=== PATIENT | male | born 1945 | race Caucasian/White ===

== ENCOUNTER → 2024-01-02 08:58 | Outpatient (REF) | payer MEDICARE, OTHER, SELFPAY ==
[2024-01-02 10:53] LABS: PSA, Total - Diagnostic 1.47 ng/ml (0.0-4.0)
== END ==
LOC: REG 08:58
PROVIDERS: ATTENDING PHYSICIAN Radiology Radiation Oncology; FAMILY PHYSICIAN Internal Medicine; REFERRING PHYSICIAN Urology
DX: C61 Malignant neoplasm of prostate (principal)
CPT/HCPCS: 36415; 84153

== ENCOUNTER → 2024-01-25 12:18 | Outpatient (REF) | payer MEDICARE, OTHER, SELFPAY ==
[2024-01-25 14:51] LABS: PSA, Total - Diagnostic 1.43 ng/ml (0.0-4.0)
== END ==
LOC: REG 12:18
PROVIDERS: ATTENDING PHYSICIAN Radiology Radiation Oncology; FAMILY PHYSICIAN Internal Medicine
DX: C61 Malignant neoplasm of prostate (principal)
CPT/HCPCS: 36415; 84153; 84403

== ENCOUNTER 2024-04-20 23:36 | Inpatient (IN) | payer MEDICARE, OTHER, SELFPAY ==
[2024-04-20 18:18] VITALS: BP 163/80
[2024-04-20] MEDS: TYLENOL 1000 MG PO (19:11)
[2024-04-20] MEDS: NSS 1000 IV ×2 (19:20→23:28)
[2024-04-20 19:27] LABS: % Basophils 0.1 % (0-2); % Eosinophils 0.5 % (0-6); % Immature Granulocytes 0.2 % (0-0.5); % Lymphocytes 3.4 % (20.5-51.1); % Neutrophils 83.8 % (42.2-75.2); Absolute Eosinophils 0.1 10^3/uL (0-0.7); Absolute Lymphocytes 0.4 10^3/uL (1.2-3.4); Absolute Monocytes 1.5 10^3/uL (0.1-0.6); Absolute Neutrophils 10.2 10^3/uL (1.4-6.5); Hematocrit 37.4 % (39.0-52.0); Hemoglobin 12.9 g/dL (13.0-18.0); Mean Corp Hgb Conc. 34.5 g/dL (33.0-37.0); Mean Corpuscular Hgb 31.2 pg (27.0-31.0); Mean Corpuscular Volume 90.6 fL (80.0-94.0); Mean Platelet Volume 9.5 fL (7.4-10.4); Nucleated Red Blood Cells % 0 % (-); Platelet Count 253 10^3/uL (130-400); Red Blood Cell Count 4.13 10^6/uL (4.70-6.10); Red Cell Dist. Width 12.5 % (11.5-14.5); White Blood Cell Count 12.2 10^3/uL (4.8-10.8)
[2024-04-20 19:40] LABS: ALT (SGPT) 26 U/L (0-50); AST (SGOT) 24 U/L (17-59); Albumin 3.8 g/dl (3.5-5.0); Alkaline Phosphatase 74 U/L (38-126); Blood Urea Nitrogen 17 mg/dl (9-20); Carbon Dioxide 27 mmol/L (22-30); Chloride 101 mmol/L (98-107); Glucose 110 mg/dl (70-99); Potassium 3.9 mmol/L (3.5-5.1); Sodium 134 mmol/L (135-145); Total Bilirubin 1.1 mg/dl (0.2-1.3); Total Protein 6.4 g/dl (6.3-8.2); eGFR > 60.00
--- NOTE | 2024-04-20 19:55 | ED.GENMED ---
History of Present Illness
General
Chief Complaint: Dehydration Symptoms
Source: patient and spouse
Exam Limitations: none
Time Seen by Provider: 04/20/24 18:29
Nursing documentation reviewed up to this point in time: agreed with
History of Present Illness
History of Present Illness:
79-year-old male status post prostate removal 15 years ago now had recurrence elevated PSAs finished course of radiation at [facility], on his pelvis restarted recently on his ribs for 5 days has had fatigue nausea diarrhea intermittent constipation
trouble urinating febrile here in triage, has been sleeping quite a bit, breathing okay, no recent antibiotic use,
Past History
Past History
ED Past Medical History: Cancer (Prostate cancer,)
ED Past Surgical History: Appendectomy and Urological (Prostatectomy)
Social History
Tobacco: Non-smoker
Alcohol: None
Drug: None
Personal:
Living: with family
Employment: Employed
Family History
Family History: Other (Noncontributory)
Review of Systems
Review of Systems
All Other Systems: Not applicable
Constitutional: Reports fatigue
EENT: Reports no symptoms
Respiratory: Reports no symptoms
Cardiac: Reports no symptoms
ABD/GI: Reports abdominal pain, nausea, diarrhea and constipated
: Reports dysuria, frequency, difficulty voiding and urgency
Musculoskeletal: Reports no symptoms
Neurological: Reports weakness
Endocrine: Reports no symptoms
Hematologic/Lymphatic: Reports no symptoms
Phy Exam
Physical Exam
Physical Exam:
Physical Exam
General: 70s male febrile normal mental status
Neck: Dry
Heart: Tachycardic
Lungs: no acute respiratory distress. clear bilaterally
Abdomen: Mild suprapubic tenderness
Neuro: alert and oriented. no focal neurological deficits
Skin: no rash
Psychiatric: well kept. interactive and cooperative
Extremities: no edema.
Course
Orders/Labs/Results
Orders:
Orders
04/20/24 18:32
STOOL [C difficile Antigen & Toxins] Urgent
BRIDGET Source: Feces/Stool
Specimen Description:
Date Specimen was Collected: 04/20/24
Time Specimen was Collected: 20:32
Stool Culture Urgent
BRIDGET Source: Feces/Stool
Specimen Description:
Date Specimen was Collected: 04/20/24
Time Specimen was Collected: 20:32
04/20/24 18:59
0.9% Sodium Chloride 1000 ml [Nss] 1,000 ml IV BOLUS
Acetaminophen [Tylenol] 1,000 mg PO NOW STA
04/20/24 19:16
CMP [Comprehensive Metabolic Panel] Urgent
Complete Blood Count/With Diff Urgent
04/20/24 19:21
Bladder Scan- Treatment ONCE
04/20/24 19:57
CT Abd/Pel (IV only)-[facility] only Urgent
Comment:
Reason For Exam: Fever diarrhea prostate cancer
04/20/24 21:46
Urinalysis Reflex To Culture Urgent
Date Specimen was Collected: 04/20/24
Time Specimen was Collected: 20:32
Abnormal Lab Results
04/20/24 04/20/24
19:16 21:46
WBC 12.2 H 10^3/uL
(4.8-10.8)
RBC 4.13 L 10^6/uL
(4.70-6.10)
Hgb 12.9 L g/dL
(13.0-18.0)
Hct 37.4 L %
(39.0-52.0)
MCH 31.2 H pg
(27.0-31.0)
Absolute Neuts (auto) 10.2 H 10^3/uL
(1.4-6.5)
Absolute Lymphs (auto) 0.4 L 10^3/uL
(1.2-3.4)
Absolute Monos (auto) 1.5 H 10^3/uL
(0.1-0.6)
Neutrophils % 83.8 H %
(42.2-75.2)
Lymphocytes % 3.4 L %
(20.5-51.1)
Monocytes % 12.0 H %
(1.7-9.3)
Sodium 134 L mmol/L
(135-145)
Glucose 110 H mg/dl
(70-99)
Urine Ketones Trace A
(Negative)
04/20/24 19:16
04/20/24 19:16
Vital Signs
Initial and Last Documented VS:
Initial Vital Signs
Temp Pulse Resp BP Pulse Ox
100.9 F H 94 18 163/80 97
04/20/24 18:18 04/20/24 18:18 04/20/24 18:18 04/20/24 18:18 04/20/24 18:18
Last Documented Vital Signs
Temp Pulse Resp BP Pulse Ox
100.9 F H 94 18 115/64 97
04/20/24 18:18 04/20/24 18:18 04/20/24 18:18 04/20/24 21:40 04/20/24 18:18
*Critical Care Note
Total Time (30-74mins, 75-104mins- exclusive of procedures): Not Applicable
Update Note
Update Note:
Update, labs noted, patient has yet to provide a stool specimen
In light of the patient's relatively severe symptoms and fever and believe it would be prudent to admit him to the hospital unclear what the optimal treatment other than supportive therapy at this time
Message sent to hospitalist, colorectal
ED Attending Note
-
Portions of this chart may have been created with voice recognition software.� Occasional wrong word or��sound alike� substitutions may have occurred due to the inherent limitations of voice recognition software.
Discharge Plan
Departure
Patient Disposition: Admit
Date of Disposition: 04/20/24
Time of Disposition: 22:47
Presentation/result/management discussed w/ accepting MD/DO: Hospitalist
Patient with high blood pressure during this ER visit?: No
Condition: Fair
Discharge Problem:
Proctocolitis
Prescriptions:
No Action
metoprolol succinate [Toprol XL] 50 mg Tablet Extended Release 24 Hr
50 mg PO DAILY
brinzolamide 1 % Drops,Suspension
1 drp BOTH EYES TID
aspirin 81 mg Tablet,Delayed Release (Dr/Ec)
81 mg PO DAILY
timolol maleate 0.5 % Drops
1 drp BOTH EYES BID
omeprazole 20 mg Tablet,Delayed Release (Dr/Ec)
20 mg PO DAILY
PreserVision AREDS 2,148 mcg-113 mg-45 mg-17.4mg Tablet
1 tab PO DAILY
Lumigan 0.01 % Drops
1 drp BOTH EYES HS
Referrals:
Jaycee Middleton MD [Family Provider] -
Interventions
Interventions:
ED- Cardiac Assessment Last Done: 04/20/24 21:41
ED- Neurological Assessment Last Done: 04/20/24 21:41
ED- Pulmonary Assessment Last Done: 04/20/24 21:41
Discharge Date and Time
Print Language: VIETNAMESE
[2024-04-20 21:40] VITALS: BP 115/64
[2024-04-20 21:53] LABS: Urine Albumin Negative (Neg - Trace); Urine Bilirubin Negative (Negative); Urine Character Clear (Clear); Urine Color Yellow; Urine Glucose Negative (Negative); Urine Ketone Trace (Negative); Urine Leukocyte Negative (Negative); Urine Nitrite Negative (Negative); Urine Occult Blood Negative (Negative); Urine Specific Gravity 1.015 (<1.030); Urine Urobilinogen Negative (Neg - 1+)
--- NOTE | 2024-04-20 22:51 | ED.GENMED ---
History of Present Illness
General
Chief Complaint: Dehydration Symptoms
Time Seen by Provider: 04/20/24 18:29
Past History
Past History
ED Past Medical History: Cancer (Prostate cancer,)
ED Past Surgical History: Appendectomy and Urological (Prostatectomy)
Social History
Tobacco: Non-smoker
Alcohol: None
Drug: None
Personal:
Living: with family
Employment: Employed
Family History
Family History: Other (Noncontributory)
Course
Orders/Labs/Results
Orders:
Orders
04/20/24 18:32
STOOL [C difficile Antigen & Toxins] Urgent
BRIDGET Source: Feces/Stool
Specimen Description:
Date Specimen was Collected: 04/20/24
Time Specimen was Collected: 20:32
Stool Culture Urgent
BRIDGET Source: Feces/Stool
Specimen Description:
Date Specimen was Collected: 04/20/24
Time Specimen was Collected: 20:32
04/20/24 18:59
0.9% Sodium Chloride 1000 ml [Nss] 1,000 ml IV BOLUS
Acetaminophen [Tylenol] 1,000 mg PO NOW STA
04/20/24 19:16
CMP [Comprehensive Metabolic Panel] Urgent
Complete Blood Count/With Diff Urgent
04/20/24 19:21
Bladder Scan- Treatment ONCE
04/20/24 19:57
CT Abd/Pel (IV only)-[facility] only Urgent
Comment:
Reason For Exam: Fever diarrhea prostate cancer
04/20/24 21:46
Urinalysis Reflex To Culture Urgent
Date Specimen was Collected: 04/20/24
Time Specimen was Collected: 20:32
Abnormal Lab Results
04/20/24 04/20/24
19:16 21:46
WBC 12.2 H 10^3/uL
(4.8-10.8)
RBC 4.13 L 10^6/uL
(4.70-6.10)
Hgb 12.9 L g/dL
(13.0-18.0)
Hct 37.4 L %
(39.0-52.0)
MCH 31.2 H pg
(27.0-31.0)
Absolute Neuts (auto) 10.2 H 10^3/uL
(1.4-6.5)
Absolute Lymphs (auto) 0.4 L 10^3/uL
(1.2-3.4)
Absolute Monos (auto) 1.5 H 10^3/uL
(0.1-0.6)
Neutrophils % 83.8 H %
(42.2-75.2)
Lymphocytes % 3.4 L %
(20.5-51.1)
Monocytes % 12.0 H %
(1.7-9.3)
Sodium 134 L mmol/L
(135-145)
Glucose 110 H mg/dl
(70-99)
Urine Ketones Trace A
(Negative)
04/20/24 19:16
04/20/24 19:16
Vital Signs
Initial and Last Documented VS:
Initial Vital Signs
Temp Pulse Resp BP Pulse Ox
100.9 F H 94 18 163/80 97
04/20/24 18:18 04/20/24 18:18 04/20/24 18:18 04/20/24 18:18 04/20/24 18:18
Last Documented Vital Signs
Temp Pulse Resp BP Pulse Ox
100.9 F H 94 18 115/64 97
04/20/24 18:18 04/20/24 18:18 04/20/24 18:18 04/20/24 21:40 04/20/24 18:18
ED Attending Note
-
Portions of this chart may have been created with voice recognition software.� Occasional wrong word or��sound alike� substitutions may have occurred due to the inherent limitations of voice recognition software.
Discharge Plan
Departure
Patient Disposition: Admit
Date of Disposition: 04/20/24
Time of Disposition: 22:47
Presentation/result/management discussed w/ accepting MD/DO: Hospitalist
Patient with high blood pressure during this ER visit?: No
Condition: Fair
Discharge Problem:
Proctocolitis
Prescriptions:
No Action
metoprolol succinate [Toprol XL] 50 mg Tablet Extended Release 24 Hr
50 mg PO DAILY
brinzolamide 1 % Drops,Suspension
1 drp BOTH EYES TID
aspirin 81 mg Tablet,Delayed Release (Dr/Ec)
81 mg PO DAILY
timolol maleate 0.5 % Drops
1 drp BOTH EYES BID
omeprazole 20 mg Tablet,Delayed Release (Dr/Ec)
20 mg PO DAILY
PreserVision AREDS 2,148 mcg-113 mg-45 mg-17.4mg Tablet
1 tab PO DAILY
Lumigan 0.01 % Drops
1 drp BOTH EYES HS
Referrals:
Jaycee Middleton MD [Family Provider] -
Interventions
Interventions:
ED- Cardiac Assessment Last Done: 04/20/24 21:41
ED- Neurological Assessment Last Done: 04/20/24 21:41
ED- Pulmonary Assessment Last Done: 04/20/24 21:41
Discharge Date and Time
Print Language: FRENCH
[2024-04-20] MEDS: ZOSYN 50 IV (23:28)
--- NOTE | 2024-04-20 23:49 | HPS.HSE ---
Addendum entered and electronically signed by Efrain Whittington DO 04/21/24 00:08:
Patient seen and examined independently. Agree with findings and plan as set forth by Michelle Miller PA-C.
Patient is a 79y M with PMH significant for prostate cancer on XRT who presents to ED complaining of pelvic discomfort and straining to move his bowels. Patient notes that he completed a course of pelvic XRT for recurrent prostate cancer last
(34 treatments total). Patient states that he has been having alternating diarrhea and constipation since beginning radiation. Patient denies fevers, chills, N/V, etc.
Ass:
Acute Radiation Proctocolitis
Recurrent Prostate Cancer
Benign Hypertension
GERD
Plan:
Admit for further evaluation and treatment.
CT shows evidence of proctocolitis - likely secondary to radiation.
Supportive treatment including IVFs, pain control, etc.
Will observe off of further antibiotics.
Bowel regimen to alleviate constipation / straining.
Oncology evaluation for additional recommendations.
Continue usual home medications.
Original Note:
Family Physician
-
Family Physician: Jaycee Middleton
Chief Complaint
-
Constipation and Pelvic Pain
History of Present Illness
Patient is a 79 y/o male past medical history of hypertension and prostate cancer who presents with pelvic discomfort associated with difficulty moving his bowel. Patient reports he finished up a coarse of radiation on April 14 for recurrence of
his prostate cancer. Patient notes during the radiation he was always having trouble with his bowels alternating between constipation and diarrhea. He notes last BM was earlier today and described as 'mashed potato consistency'. He notes over the
past few days he has also been having difficulty urinating. He reports feeling very fatigued with not much appetite. He denies fevers, sweats or chills. He denies recent travel, antibiotics or unusual food intake.
Medical History
Past Medical History
Past Medical History: Reports Other
Additional Past Medical History:
Prostate Cancer s/p Prostatectomy and Radiation
Essential Hypertension
GERD
Past Surgical History: Reports Other
Additional Past Surgical History:
Prostatectomy
Appendectomy
Right Total Replacement
Social History
Tobacco: Non-smoker
Alcohol: None
Family History
Family History: Not pertinent
Allergies / Home Medications
Allergies reflects when Allergies were last updated in [employer].
Home Medications with original date entered in [employer]
Allergy/Medication List:
Allergies
Allergy/AdvReac Type Severity Reaction Status Date / Time
No Known Allergies Allergy Verified 04/20/24 18:23
Home Medications
aspirin 81 mg tablet,delayed release 81 mg PO DAILY 04/20/24
bimatoprost 0.01 % eye drops (Lumigan) 1 drp BOTH EYES HS 04/20/24
brinzolamide 1 % eye drops,suspension 1 drp BOTH EYES TID 04/20/24
metoprolol succinate 50 mg tablet,extended release 24 hr (Toprol XL) 50 mg PO DAILY 04/20/24
omeprazole 20 mg tablet,delayed release 20 mg PO DAILY 04/20/24
timolol maleate 0.5 % eye drops 1 drp BOTH EYES BID 04/20/24
vitamins A,C,T-tbdx-tbjahe 2,148 mcg-113 mg-45 mg-17.4 mg tablet (PreserVision AREDS) 1 tab PO DAILY 04/20/24
Review of Systems
-
A 12 point ROS was completed and negative except as noted: Yes
Constitutional: Denies Fever or Chills
Respiratory: Denies Cough or Trouble Breathing
Cardiac: Denies Chest Pain or Palpitations
Physical Exam
Vital Signs
Vital Signs
Temp Pulse Resp BP Pulse Ox
100.9 F H 94 18 115/64 97
04/20/24 18:18 04/20/24 18:18 04/20/24 18:18 04/20/24 21:40 04/20/24 18:18
Physical Exam
General: Comfortable and Conversant
HEENT: Anicteric and Moist mucous membranes
Respiratory: Clear and Non Labored Respirations
Cardiac: S1/S2 and Regular Rhythm
GI: Soft and Non Tender (Mild discomfort in suprapubic region)
Rectal: Deferred by Provider
Musculoskeletal: No Clubbing, No Cyanosis and No Edema
Skin: Warm and Dry
Neuro: Awake, Alert, Oriented and Nonfocal/grossly intact
Laboratory Results
-
04/20/24 19:16
04/20/24 19:16
Laboratory Results
Total Bilirubin 1.1 mg/dl (0.2-1.3) 04/20/24 19:16
AST 24 U/L (17-59) 04/20/24 19:16
ALT 26 U/L (0-50) 04/20/24 19:16
Alkaline Phosphatase 74 U/L (38-126) 04/20/24 19:16
Data Reviewed
-
CT Scan: Report Reviewed by me
Lab Data: Labs Reviewed by me
Impression/Plan
-
Acute Proctocolitis, likely secondary to radiation
-Consult Oncology
-Continue IVFs - Allow clear liquids
-Start Miralax Daily
-Avoid narcotics as this will make constipation worse
-Monitor bladder scans
-Hold on further antibiotics
Essential Hypertension
-Continue metoprolol with hold parameters
GERD
-Continue Protonix
Prostate Cancer s/p Prostatectomy 15 years ago and Radiation (Completed Pelvic Radiation on April 14 and Started Right Rib Radiation on April 20)
DVT proph: SCDs
Code Status: Full Code
[2024-04-21 01:47] VITALS: BMI 22.9
[2024-04-21 01:48] VITALS: BP 164/86
[2024-04-21] MEDS: NSS 1000 IV ×2 (04:13→16:15)
[2024-04-21 06:28] LABS: Hematocrit 32.2 % (39.0-52.0); Hemoglobin 11.5 g/dL (13.0-18.0); Mean Corp Hgb Conc. 35.7 g/dL (33.0-37.0); Mean Corpuscular Hgb 31.3 pg (27.0-31.0); Mean Corpuscular Volume 87.5 fL (80.0-94.0); Mean Platelet Volume 9.7 fL (7.4-10.4); Platelet Count 209 10^3/uL (130-400); Red Blood Cell Count 3.68 10^6/uL (4.70-6.10); Red Cell Dist. Width 12.4 % (11.5-14.5); White Blood Cell Count 9.8 10^3/uL (4.8-10.8)
[2024-04-21 06:52] LABS: Blood Urea Nitrogen 14 mg/dl (9-20); Calcium 8.7 mg/dl (8.4-10.2); Carbon Dioxide 25 mmol/L (22-30); Chloride 104 mmol/L (98-107); Estimated Creatinine Clearance 93 ml/min; Glucose 111 mg/dl (70-99); Potassium 3.7 mmol/L (3.5-5.1); Sodium 135 mmol/L (135-145); eGFR > 60.00
[2024-04-21 07:00] VITALS: BP 137/81
[2024-04-21] MEDS: MIRALAX 17 GRAMS PO (08:11)
[2024-04-21] MEDS: AZOPT 1% OPHTHALMIC SUSPENSION 1 DROP BOTH EYES ×3 (08:11→21:11)
[2024-04-21] MEDS: PROTONIX 40 MG PO (08:11)
[2024-04-21] MEDS: TOPROL XL 50 MG PO (08:11)
[2024-04-21] MEDS: TIMOPTIC 0.5% OPHTHALMIC SOLUTION 1 DROP BOTH EYES ×2 (08:12→21:11)
--- NOTE | 2024-04-21 08:38 | W.PN.HOSP.TC ---
Today's Communication/Plan
-
see bold
Assessment / Plan
Assessment / Plan
HPI: 9y M with PMH significant for prostate cancer on XRT who presents to ED complaining of pelvic discomfort and straining to move his bowels. Patient notes that he completed a course of pelvic XRT for recurrent prostate cancer last
(34 treatments total). Patient states that he has been having alternating diarrhea and constipation since beginning radiation. Patient denies fevers, chills, N/V, etc.
Acute Proctocolitis, likely secondary to radiation
-CT of the abdomen and pelvis shows acute proctocolitis of the rectum and sigmoid colon, moderate fecal material in the proximal colon
-Oncology consulted
-Treatment for acute proctocolitis is supportive care, continue IV fluids, pain meds, MiraLAX
-Avoid narcotics as this will make constipation worse
-Monitor bladder scans
-Hold on further antibiotics
Recurrent Prostate Cancer s/p Prostatectomy 15 years ago and Radiation (Completed Pelvic Radiation on April 14 and Started Right Rib Radiation on April 20)
-Follow-up with oncology outpatient
Leukocytosis
� Reactive, resolved
Essential Hypertension
-Continue metoprolol with hold parameters
GERD
-Continue Protonix
DVT proph: SQ lovenox
Code Status: Full Code
Total time spent to see the patient on the floor, examine the patient, review data and lab results, discuss treatment plan with patient, nursing staff around 50 minutes.
Physical Exam
General: Appears to not feel well, no acute distress
HEENT: Normocephalic, Atraumatic, EOMI, MMM
Respiratory: Clear to Auscultation bilaterally
Cardiac: Normal S1/S2, Regular Rate and Rhythm
GI: Soft, Nontender, Nondistended, Normal Bowel Sounds
Extremities: No Clubbing, Cyanosis, or Edema
Neuro: Nonfocal/Grossly Intact
Psych: Calm, Cooperative
Derm: No Visible lesions
Anticipated Discharge: 24 - 48 hours
Subjective/Interval History
-
Date of Service: April 21, 2024
Patient continues to have intermittent abdominal cramping causing him to go to the bathroom. His cramping resolves after a bowel movement. No fever, no vomiting.
Objective Data
-
Labs:
Laboratory Results
04/21/24
05:59
WBC 9.8
Hgb 11.5 L
Hct 32.2 L
Plt Count 209
Sodium 135
Potassium 3.7
Chloride 104
Carbon Dioxide 25
BUN 14
Creatinine 0.7
Glucose 111 H
Calcium 8.7
Vital Signs:
Vital Signs
Temp Pulse Resp BP Pulse Ox
98.2 F 83 17 137/81 98
04/21/24 07:00 04/21/24 07:00 04/21/24 07:00 04/21/24 07:00 04/21/24 07:00
--- NOTE | 2024-04-21 14:46 | CON.ONC ---
Impression
Impression
prostate cancer
proctocolitis - potentially radiation induced
diarrhea/ constipation
Plan
Plan
1. Prostate cancer
-s/p prostatectomy - 15 years ago - now w/ biochemical recurrence s/p XRT to prostate bed at [facility]
-would recommend consultation w/ radiation oncology regarding management of potential post radiation complications
-consider GI consultation assist w/ management of proctocolitis
Patient History
History of Present Illness
79y/o male seen in consultation today regarding prostate cancer.
The patient has a h/o prostate cancer, s/p prostatectomy at [facility] approximately 15 years ago. More recently due to rise in PSA, he underwent XRT to the prostate bed w/ Dr. Briceño at [facility], finishing last week.
He presented to the [facility] ER yesterday w/pelvic discomfort and difficulty moving his bowels. He has been having alternating diarrhea and constipation since beginning radiation.
CT imaging in the ER revealed severe acute proctocolitis of the rectum and sigmoid colon. Moderate diffuse urinary bladder wall thickening suggesting cystitis.
Clinically, he feels slightly better this afternoon. He continues to have loose stools w/ some abdominal pain. No fevers or chills.
Past-Medical/Surgical History
PMH:
prostate cancer - s/p prostatectomy approximately 15 years ago at [facility] - now w/ biochemical recurrence - s/p XRT at [facility] - Dr. Briceño
Essential Hypertension
GERD
PSH:
Prostatectomy
Appendectomy
Right Total Replacement
Social History
Tobacco: Non-smoker
Alcohol: None
Family History
Family History: Not pertinent
Allergies:
NKDA
Patient Medication
�Medication �Instructions �Recorded �Confirmed �Last Taken �Type
aspirin 81 mg tablet,delayed 81 mg PO DAILY Blood Clot 04/20/24 04/20/24 04/20/24 History
release Prevention/Tx
bimatoprost 0.01 % eye drops 1 drp BOTH EYES HS Eye Condition 04/20/24 04/20/24 04/19/24 History
(Lumigan)
brinzolamide 1 % eye 1 drp BOTH EYES TID Eye Condition 04/20/24 04/20/24 04/20/24 History
drops,suspension
metoprolol succinate 50 mg 50 mg PO DAILY Blood Pressure 04/20/24 04/20/24 04/20/24 History
tablet,extended release 24 hr
(Toprol XL)
omeprazole 20 mg tablet,delayed 20 mg PO DAILY Gastrointestinal 04/20/24 04/20/24 04/20/24 History
release Issue
timolol maleate 0.5 % eye drops 1 drp BOTH EYES BID Eye Condition 04/20/24 04/20/24 04/20/24 History
vitamins A,C,U-itnl-syjqfn 2,148 1 tab PO DAILY Supplement 04/20/24 04/20/24 04/20/24 History
mcg-113 mg-45 mg-17.4 mg tablet
(PreserVision AREDS)
Active Medications
Generic Name Dose Route Start Last Admin
Trade Name Freq PRN Reason Stop Dose Admin
Acetaminophen 650 mg 04/21/24 01:52
Acetaminophen 325 Mg Tablet PO 05/19/24 01:51
Q4HPRN PRN
mild pain/ fever>100.5F
Brinzolamide 1 drop 04/21/24 08:00 04/21/24 08:11
Brinzolamide 1% (Ophthalmic Suspension) 15 Ml Bottle BOTH EYES 05/19/24 07:59 1 drop
TID BRITNEY Administration
Enoxaparin Sodium 40 mg 04/21/24 18:00
Enoxaparin Sodium 40 Mg/0.4 Ml Syringe SC 05/19/24 17:59
QPM BRITNEY
Sodium Chloride 1,000 mls @ 80 mls/hr 04/21/24 01:52 04/21/24 04:13
Nss IV 1,000 mls
[id number] BRITNEY Administration
Ketorolac Tromethamine 10 mg 04/21/24 01:52
Ketorolac 15 Mg/Ml Injection IV 04/26/24 01:51
Q6HPRN PRN
moderate/severe pain
Latanoprost 1 drop 04/21/24 22:00
Latanoprost 0.005% (Ophthalmic Solution) 2.5 Ml Bottle BOTH EYES 05/19/24 21:59
HS BRITNEY
Metoprolol Succinate 50 mg 04/21/24 08:00 04/21/24 08:11
Metoprolol 50 Mg Extended Release Tablet PO 05/19/24 07:59 50 mg
DAILY BRITNEY Administration
Pantoprazole Sodium 40 mg 04/21/24 08:00 04/21/24 08:11
Pantoprazole 40 Mg Delayed Release Tablet PO 05/19/24 07:59 40 mg
DAILY BRITNEY Administration
Polyethylene Glycol 17 grams 04/21/24 08:00 04/21/24 08:11
Polyethylene Glycol Powder 17 Grams Packet PO 05/19/24 07:59 17 grams
DAILY BRITNEY Administration
Sodium Chloride 0 flush 04/21/24 03:00
Sodium Chloride 0.9% (Flush) Syringe IV 05/19/24 02:59
PER PROTOCOL BRITNEY
Timolol Maleate 1 drop 04/21/24 08:00 04/21/24 08:12
Timolol 0.5% (Ophthalmic Solution) Bottle BOTH EYES 05/19/24 07:59 1 drop
BID BRITNEY Administration
Review of Systems
-
An ROS was performed w/ pertinent findings as per HPI.
Physical Exam
-
General: Well Developed and No Apparent Distress
Cardiology: Normal Sinus Rhythm
Pulmonary: Clear
GI: Soft and Distended
Extremities: No C/C/E
Neurology: Non Focal
Labs
Lab Results
WBC 9.8 10^3/uL (4.8-10.8) 04/21/24 05:59
RBC 3.68 10^6/uL (4.70-6.10) L 04/21/24 05:59
Hgb 11.5 g/dL (13.0-18.0) L 04/21/24 05:59
Hct 32.2 % (39.0-52.0) L 04/21/24 05:59
MCV 87.5 fL (80.0-94.0) 04/21/24 05:59
MCH 31.3 pg (27.0-31.0) H 04/21/24 05:59
MCHC 35.7 g/dL (33.0-37.0) 04/21/24 05:59
RDW 12.4 % (11.5-14.5) 04/21/24 05:59
Plt Count 209 10^3/uL (130-400) 04/21/24 05:59
MPV 9.7 fL (7.4-10.4) 04/21/24 05:59
Abs Immat Gran (auto) 0.0 10^3/uL (0-0.05) 04/20/24 19:16
Absolute Neuts (auto) 10.2 10^3/uL (1.4-6.5) H 04/20/24 19:16
Absolute Lymphs (auto) 0.4 10^3/uL (1.2-3.4) L 04/20/24 19:16
Absolute Monos (auto) 1.5 10^3/uL (0.1-0.6) H 04/20/24 19:16
Absolute Eos (auto) 0.1 10^3/uL (0-0.7) 04/20/24 19:16
Absolute Basos (auto) 0.0 10^3/uL (0-0.2) 04/20/24 19:16
Immature Gran % 0.2 % (0-0.5) 04/20/24 19:16
Neutrophils % 83.8 % (42.2-75.2) H 04/20/24 19:16
Lymphocytes % 3.4 % (20.5-51.1) L 04/20/24 19:16
Monocytes % 12.0 % (1.7-9.3) H 04/20/24 19:16
Eosinophils % 0.5 % (0-6) 04/20/24 19:16
Basophils % 0.1 % (0-2) 04/20/24 19:16
Creatinine 0.7 mg/dL (0.7-1.3) 04/21/24 05:59
Vital Signs
Vital Signs
Temp Pulse Resp BP Pulse Ox
98.2 F 83 17 137/81 98
04/21/24 07:00 04/21/24 07:00 04/21/24 07:00 04/21/24 07:00 04/21/24 07:00
[2024-04-21 16:20] VITALS: BP 143/76
[2024-04-21] MEDS: TYLENOL 1000 MG PO (16:27)
[2024-04-21] MEDS: LOVENOX 40 MG SC (16:27)
[2024-04-21 16:49] VITALS: BP 134/77; BP 143/76; PULSE 85; PULSE 92
[2024-04-21] MEDS: XALATAN OPHTHALMIC SOLUTION 1 DROP BOTH EYES (21:11)
[2024-04-21 23:14] VITALS: BP 161/88
[2024-04-22] MEDS: NSS 1000 IV (06:03)
[2024-04-22 06:19] LABS: Hematocrit 29.7 % (39.0-52.0); Hemoglobin 11.2 g/dL (13.0-18.0); Mean Corp Hgb Conc. 37.7 g/dL (33.0-37.0); Mean Corpuscular Hgb 32.1 pg (27.0-31.0); Mean Corpuscular Volume 85.1 fL (80.0-94.0); Mean Platelet Volume 9.5 fL (7.4-10.4); Platelet Count 205 10^3/uL (130-400); Red Blood Cell Count 3.49 10^6/uL (4.70-6.10); Red Cell Dist. Width 12.3 % (11.5-14.5); White Blood Cell Count 9.9 10^3/uL (4.8-10.8)
[2024-04-22 06:49] LABS: Blood Urea Nitrogen 14 mg/dl (9-20); Calcium 8.4 mg/dl (8.4-10.2); Carbon Dioxide 24 mmol/L (22-30); Chloride 104 mmol/L (98-107); Estimated Creatinine Clearance 93 ml/min; Glucose 113 mg/dl (70-99); Magnesium 1.6 mg/dl (1.6-2.3); Phosphorus 2.7 mg/dl (2.5-4.5); Potassium 3.5 mmol/L (3.5-5.1); Sodium 133 mmol/L (135-145); eGFR > 60.00
[2024-04-22 07:53] VITALS: BP 135/82
--- NOTE | 2024-04-22 08:33 | W.PN.HOSP.TC ---
Today's Communication/Plan
-
Discharge tomorrow
Assessment / Plan
Assessment / Plan
HPI: 9y M with PMH significant for prostate cancer on XRT who presents to ED complaining of pelvic discomfort and straining to move his bowels. Patient notes that he completed a course of pelvic XRT for recurrent prostate cancer last
(34 treatments total). Patient states that he has been having alternating diarrhea and constipation since beginning radiation. Patient denies fevers, chills, N/V, etc.
Acute Proctocolitis, likely secondary to radiation
-CT of the abdomen and pelvis shows acute proctocolitis of the rectum and sigmoid colon, moderate fecal material in the proximal colon
-Oncology consulted
-Treatment for acute proctocolitis is supportive care, continue IV fluids, pain meds, MiraLAX
-Avoid narcotics as this will make constipation worse
-Monitor bladder scans
-Hold on further antibiotics. C diff neg, f/u stool cultures
-Hopeful for discharge tomorrow with continued improvement
Recurrent Prostate Cancer s/p Prostatectomy 15 years ago and Radiation (Completed Pelvic Radiation on April 14 and Started Right Rib Radiation on April 20)
-Follow-up with oncology outpatient
Leukocytosis
� Reactive, resolved
Essential Hypertension
-Continue metoprolol with hold parameters
GERD
-Continue Protonix
DVT proph: SQ lovenox
Code Status: Full Code
Total time spent to see the patient on the floor, examine the patient, review data and lab results, discuss treatment plan with patient, nursing staff around 38 minutes.
Physical Exam
General: Appears to not feel well, no acute distress
HEENT: Normocephalic, Atraumatic, EOMI, MMM
Respiratory: Clear to Auscultation bilaterally
Cardiac: Normal S1/S2, Regular Rate and Rhythm
GI: Soft, Nontender, Nondistended, Normal Bowel Sounds
Extremities: No Clubbing, Cyanosis, or Edema
Neuro: Nonfocal/Grossly Intact
Psych: Calm, Cooperative
Derm: No Visible lesions
Anticipated Discharge: Within 24 hours
Subjective/Interval History
-
Date of Service: April 22, 2024
Patient reports less straining with bowel movements. He had 1 loose bowel movement this morning. He is tolerating his low residue diet. No fever, no vomiting.
Objective Data
-
Labs:
Laboratory Results
04/22/24
06:08
WBC 9.9
Hgb 11.2 L
Hct 29.7 L
Plt Count 205
Sodium 133 L
Potassium 3.5
Chloride 104
Carbon Dioxide 24
BUN 14
Creatinine 0.7
Glucose 113 H
Calcium 8.4
Vital Signs:
Vital Signs
Temp Pulse Resp BP Pulse Ox
99.0 F 91 18 135/82 97
04/22/24 07:53 04/22/24 07:53 04/22/24 07:53 04/22/24 07:53 04/22/24 07:53
I&O
04/21/24 04/22/24 04/23/24
06:59 06:59 06:59
Intake Total 1580 / 1580
Output Total 500 / 500
Balance 1080 / 1080
[2024-04-22] MEDS: MIRALAX 17 GRAMS PO (08:46)
[2024-04-22] MEDS: TOPROL XL 50 MG PO (08:46)
[2024-04-22] MEDS: PROTONIX 40 MG PO (08:46)
[2024-04-22] MEDS: TIMOPTIC 0.5% OPHTHALMIC SOLUTION 1 DROP BOTH EYES ×2 (08:51→20:30)
[2024-04-22] MEDS: AZOPT 1% OPHTHALMIC SUSPENSION 1 DROP BOTH EYES ×3 (08:51→21:52)
[2024-04-22] MEDS: KCL 20 MEQ PO (15:50)
[2024-04-22 15:59] VITALS: BP 147/72
[2024-04-22] MEDS: LOVENOX 40 MG SC (16:52)
--- NOTE | 2024-04-22 16:57 | CM ---
Reviewed chart, met with patient to obtain information for assessment. Patient stated that he lives with his in a single home with one step to enter. He is independent with his ADLs, personal care, dressing and bathing. 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 He drives and can transport himself to his appointments and does all of his own shopping.
He has a cane that he does not use but denied any other DME.
He has not had VN services.
He has been to [facility] in the past.
Patient has a prescription plan and uses, [facility] in [place] for all of his medications.
Patient's PCP is, Jaycee Middleton.
Plan: Case management will continue to follow and assist with discharge planning. Patient would like to return home when cleared for discharge.
[2024-04-22] MEDS: XALATAN OPHTHALMIC SOLUTION 1 DROP BOTH EYES (21:53)
[2024-04-22] MEDS: NSS IV (21:59)
[2024-04-22 22:48] VITALS: BP 157/84
[2024-04-23 07:40] VITALS: BP 144/87
--- NOTE | 2024-04-23 08:03 | W.PN.HOSP.TC ---
Today's Communication/Plan
-
Discharge today
Assessment / Plan
Assessment / Plan
HPI: 9y M with PMH significant for prostate cancer on XRT who presents to ED complaining of pelvic discomfort and straining to move his bowels. Patient notes that he completed a course of pelvic XRT for recurrent prostate cancer last
(34 treatments total). Patient states that he has been having alternating diarrhea and constipation since beginning radiation. Patient denies fevers, chills, N/V, etc.
Acute Proctocolitis, likely secondary to radiation
-CT of the abdomen and pelvis shows acute proctocolitis of the rectum and sigmoid colon, moderate fecal material in the proximal colon
-Oncology consulted
-Treatment for acute proctocolitis is supportive care. Pain resolved. Tolerating diet.
-Avoid narcotics as this will make constipation worse
-Monitor bladder scans
-Hold on further antibiotics. C diff neg, f/u stool cultures
-Medically stable for discharge
�Follow-up with his radiation oncologist this week
Recurrent Prostate Cancer s/p Prostatectomy 15 years ago and Radiation (Completed Pelvic Radiation on April 14 and Started Right Rib Radiation on April 20)
-Follow-up with oncology outpatient
Hypokalemia
� Potassium 3.4, replete. Magnesium normal
Leukocytosis
� Reactive, resolved
Essential Hypertension
-Continue metoprolol with hold parameters
GERD
-Continue Protonix
DVT proph: SQ lovenox
Code Status: Full Code
Physical Exam
General: Appears to not feel well, no acute distress
HEENT: Normocephalic, Atraumatic, EOMI, MMM
Respiratory: Clear to Auscultation bilaterally
Cardiac: Normal S1/S2, Regular Rate and Rhythm
GI: Soft, Nontender, Nondistended, Normal Bowel Sounds
Extremities: No Clubbing, Cyanosis, or Edema
Neuro: Nonfocal/Grossly Intact
Psych: Calm, Cooperative
Derm: No Visible lesions
Anticipated Discharge: Today
Subjective/Interval History
-
Date of Service: April 23, 2024
Patient complained of being up all night urinating. No fever, no vomiting. Abdominal cramps resolved. He is tolerating his low residue diet.
Objective Data
-
Labs:
Laboratory Results
04/23/24
06:00
WBC Pending
Hgb Pending
Hct Pending
Plt Count Pending
Sodium Pending
Potassium Pending
Chloride Pending
Carbon Dioxide Pending
BUN Pending
Creatinine Pending
Glucose Pending
Calcium Pending
Vital Signs:
Vital Signs
Temp Pulse Resp BP Pulse Ox
98.7 F 70 16 144/87 99
04/23/24 07:40 04/23/24 07:40 04/23/24 07:40 04/23/24 07:40 04/23/24 07:40
I&O
04/22/24 04/23/24 04/24/24
06:59 06:59 06:59
Intake Total 1580 / 1580
Output Total 500 / 500
Balance 1080 / 1080
[2024-04-23] MEDS: TIMOPTIC 0.5% OPHTHALMIC SOLUTION 1 DROP BOTH EYES (09:17)
[2024-04-23] MEDS: AZOPT 1% OPHTHALMIC SUSPENSION 1 DROP BOTH EYES (09:17)
[2024-04-23] MEDS: PROTONIX 40 MG PO (09:17)
[2024-04-23] MEDS: TOPROL XL 50 MG PO (09:17)
[2024-04-23] MEDS: MIRALAX 17 GRAMS PO (09:17)
[2024-04-23] MEDS: MYLICON 80 MG PO (09:19)
--- NOTE | 2024-04-23 09:43 | W.DCSUMMARY ---
Discharge Summary
Discharge Data
Date of Admission: 04/20/24
Date of Discharge: 04/23/24
-
Pending Results: No
Hospital Course
Discharge diagnosis:
Acute severe radiation-induced proctocolitis
Constipation
Recurrent prostate cancer status post prostatectomy 15 years ago, now treated with radiation
Leukocytosis, likely reactive
Hypokalemia
Benign essential hypertension
Gastroesophageal reflux disease
Consults: Oncology
CT abdomen pelvis:
1. SEVERE ACUTE PROCTOCOLITIS of the rectum and sigmoid colon. Diagnostic possibilities are (1) acute infection, (2) acute exacerbation of ulcerative colitis, or (3) radiation colitis.
2. Moderate diffuse urinary bladder wall thickening suggesting cystitis.
3. 4.8 cm lymphocele or seroma along the left pelvic sidewall.
4. Previous prostatectomy.
5. Mild to moderate diverticulosis in the descending and sigmoid colon.
6. Moderate amount of fecal material throughout the proximal colon.
7. Mild diffuse hepatic steatosis.
8. Small hiatal hernia.
9. 3 mm nonobstructing left intrarenal calculus.
10. 1.6 cm left adrenal adenoma.
11. Grade 1 anterolisthesis of L4 on L5 secondary to severe facet joint arthrosis.
12. 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
Hospital course:
79-year-old male with a past medical history of prostate cancer status post prostatectomy currently on radiation therapy presented with pelvic discomfort, and was found to have severe radiation-induced proctocolitis and constipation.
Patient was seen in conjunction with oncology. He received supportive treatment, with IV fluids, pain medications, and laxatives. After several days, his pelvic cramping resolved. He was able to have bowel movements without straining. He
tolerated a regular diet.
Patient had a leukocytosis, that was likely reactive. His leukocytosis resolved. He was afebrile. Stool studies were negative for C. difficile, stool cultures were also negative.
Patient is medically stable for discharge. He needs to follow-up with his usual radiation oncologist in 2-3 days.
Disposition: Home self-care (declined home VN)
Discharge planning: Required 36 minutes
Discharge Plan
-
Patient Disposition: Home (Routine Discharge)
Discharge Diagnosis/Procedures: Severe acute radiation-induced proctocolitis, constipation, recurrent prostate cancer
Condition: Good
Diet: Low Residue
Activity: As tolerated
Driving Restrictions: As prior to admission
Activity Restrictions/Additional Instructions:
Please follow-up with your radiation oncologist in 2-3 days. Call for an appointment.
Follow-up with your primary care doctor in 1 week. Call for an appointment.
Referrals:
Jaycee Middleton MD [Family Provider] - in one week
Prescriptions:
New
simethicone 80 mg Tablet,Chewable
80 mg PO QIDPRN PRN (Reason: gas) Qty: 30 0RF
acetaminophen [Tylenol Extra Strength] 500 mg Tablet
1,000 mg PO Q6HPRN PRN (Reason: mild pain/ fever>100.5F) Qty: 100 0RF
polyethylene glycol 3350 17 gram/dose powder
17 g PO DAILY Qty: 510 0RF
Continued
metoprolol succinate [Toprol XL] 50 mg Tablet Extended Release 24 Hr
50 mg PO DAILY
brinzolamide 1 % Drops,Suspension
1 drp BOTH EYES TID
aspirin 81 mg Tablet,Delayed Release (Dr/Ec)
81 mg PO DAILY
timolol maleate 0.5 % Drops
1 drp BOTH EYES BID
omeprazole 20 mg Tablet,Delayed Release (Dr/Ec)
20 mg PO DAILY
PreserVision AREDS 2,148 mcg-113 mg-45 mg-17.4mg Tablet
1 tab PO DAILY
Lumigan 0.01 % Drops
1 drp BOTH EYES HS
Discharge Orders:
Discharge Patient (As Directed); Ordered 04/23/24
Ordered By: Joaquin Rojas
Discharge Date and Time
Discharge Date/Time: 04/23/24 14:32
Print Language: LAO
[2024-04-23 11:41] LABS: Hematocrit 34.4 % (39.0-52.0); Hemoglobin 12.1 g/dL (13.0-18.0); Mean Corp Hgb Conc. 35.2 g/dL (33.0-37.0); Mean Corpuscular Hgb 31.1 pg (27.0-31.0); Mean Corpuscular Volume 88.4 fL (80.0-94.0); Platelet Count 256 10^3/uL (130-400); Red Blood Cell Count 3.89 10^6/uL (4.70-6.10); Red Cell Dist. Width 12.5 % (11.5-14.5); White Blood Cell Count 8.7 10^3/uL (4.8-10.8)
--- NOTE | 2024-04-23 11:50 | CM ---
MD entered order for discharge.
Spoke with pt he said he was ready for dc.
Reviewed IMM he agreed with dc.
He said Romana will drive him home.'
Offered VN he declined need,.
PLAN Home no needs
[2024-04-23 12:11] LABS: Blood Urea Nitrogen 13 mg/dl (9-20); Carbon Dioxide 26 mmol/L (22-30); Chloride 101 mmol/L (98-107); Estimated Creatinine Clearance 81 ml/min; Glucose 100 mg/dl (70-99); Magnesium 1.8 mg/dl (1.6-2.3); Potassium 3.4 mmol/L (3.5-5.1); Sodium 137 mmol/L (135-145); eGFR > 60.00
[2024-04-23] MEDS: KCL 40 MEQ PO (13:14)
[2024-04-23 14:06] VITALS: BP 157/81
== END 2024-04-23 14:32 | disposition home or self-care (01) | DRG 395 ==
LOC: 3 WEST ACU 23:36
PROVIDERS: Emergency Medicine; Physician Assistant Medical; ADMITTING PHYSICIAN Hospitalist; ATTENDING PHYSICIAN Family Medicine; EMERGENCY PHYSICIAN Emergency Medicine; FAMILY PHYSICIAN Internal Medicine; OTHER PHYSICIAN Internal Medicine Hematology & Oncology
DX: K62.7 Radiation proctitis (principal); I10 Essential (primary) hypertension; K21.9 Gastro-esophageal reflux disease without esophagitis; K52.9 Noninfective gastroenteritis and colitis, unspecified
CPT/HCPCS: 74177; 80048; 80053; 81003; 83735; 84100; 85025; 85027; 87045; 87046; 87077; 87324; 87427; 87449; 96361; 96365; 99285; Q9967

== ENCOUNTER 2024-05-07 02:13 | Inpatient (IN) | payer MEDICARE, OTHER, SELFPAY ==
[2024-05-06 22:47] VITALS: BMI 21.6
[2024-05-06 22:48] VITALS: BP 138/75
[2024-05-06 23:00] VITALS: BP 139/78
--- NOTE | 2024-05-06 23:14 | ED.GENMED ---
History of Present Illness
<Toro Shahid MD, Resident - Last Filed: 05/07/24 01:32>
General
Chief Complaint: Rectal Bleeding
Time Seen by Provider: 05/06/24 22:56
History of Present Illness
History of Present Illness:
79-year-old male presented to the ED with rectal bleeding. The patient has a history of prostate cancer and was recently seen in on 04/20 for acute proctocolitis, where he was advised to receive supportive care. Following his discharge from the "[facility] on 04/24, he began taking MiraLAX, which led to diarrhea over the next 2 weeks. The rectal bleeding, which began at 4 PM today, is bright red and persistent. He is currently wearing a diaper for the first time due to this bleeding.
Patient reports lower abdominal pain. Patient has undergone total of 34 radiation treatments for his prostate cancer at [place].
Past History
<Toro Shahid MD, Resident - Last Filed: 05/07/24 01:32>
Past History
ED Past Medical History: Cancer (Prostate cancer,)
ED Past Surgical History: Appendectomy and Urological (Prostatectomy)
Social History
Tobacco: Non-smoker
Alcohol: None
Drug: None
Personal:
Living: with family
Employment: Employed
Family History
Family History: Other (Noncontributory)
Review of Systems
<Toro Shahid MD, Resident - Last Filed: 05/07/24 01:32>
Review of Systems
: Reports bleeding (rectal)
Phy Exam
<Toro Shahid MD, Resident - Last Filed: 05/07/24 01:32>
General Physical Exam
General Presentation: well appearing and no apparent distress
Cardiovascular Exam
Cardiovascular Exam: regular rate/rhythm
Pulmonary Exam
Pulmonary Exam: lungs clear
Gastrointestinal Exam
Gastrointestinal Exam: normal bowel sounds and tender
Course
<Toro Shahid MD, Resident - Last Filed: 05/07/24 01:32>
Orders/Labs/Results
Orders:
Orders
05/06/24 23:14
0.9% Sodium Chloride 250 ml [Nss] 250 ml IV BOLUS
05/06/24 23:18
Complete Blood Count/With Diff Urgent
05/06/24 23:23
STOOL [C difficile Antigen & Toxins] Urgent
BRIDGET Source: Feces/Stool
Specimen Description:
Date Specimen was Collected: 05/07/24
Time Specimen was Collected: 01:42
Stool Culture Urgent
BRIDGET Source: Feces/Stool
Specimen Description:
Date Specimen was Collected: 05/07/24
Time Specimen was Collected: 01:43
05/06/24 23:24
Comprehensive Metabolic Panel Urgent
05/06/24 23:50
0.9% Sodium Chloride 1000 ml [Nss] 1,000 ml IV BOLUS
05/07/24 00:15
CT Abd/pelvis W Iv Cont Urgent
Reason For Exam: pain bleeding
05/07/24 01:52
Admit/Transfer Patient As Directed
Co-Sign Provider:
Level of Care: Inpatient admission
Assign to:: Telemetry
Physician / Group: htay
Diagnosis: acute rectal bleed
Reason for Telemetry: Other
Other Reason for Telemetry: acute rectal bleed
Date to Stop Telemetry: 05/09/24
Time to Stop Telemetry: 11:00
Reason for Hospitalization: acute rectal bleed
Expected length of stay greater than two midnights?: Yes
ELOS- Estimated Length of Stay in days: 3
I certify the patient meets the requirements for IP care: Yes
05/07/24 01:53
Code Status As Directed
Resuscitation Status: Full Code
05/09/24 11:00
DC Protocol for Telemetry ONCE
Abnormal Lab Results
05/06/24 05/06/24
23:18 23:24
WBC 11.6 H 10^3/uL
(4.8-10.8)
RBC 4.11 L 10^6/uL
(4.70-6.10)
Hgb 12.8 L g/dL
(13.0-18.0)
Hct 36.5 L %
(39.0-52.0)
MCH 31.1 H pg
(27.0-31.0)
Plt Count 412 H 10^3/uL
(130-400)
Absolute Neuts (auto) 9.3 H 10^3/uL
(1.4-6.5)
Absolute Lymphs (auto) 0.5 L 10^3/uL
(1.2-3.4)
Absolute Monos (auto) 1.6 H 10^3/uL
(0.1-0.6)
Neutrophils % 80.0 H %
(42.2-75.2)
Lymphocytes % 4.6 L %
(20.5-51.1)
Monocytes % 13.8 H %
(1.7-9.3)
BUN 32 H mg/dl
(9-20)
Glucose 117 H mg/dl
(70-99)
Total Protein 6.1 L g/dl
(6.3-8.2)
Albumin 3.4 L g/dl
(3.5-5.0)
05/06/24 23:18
05/06/24 23:24
Vital Signs
Initial and Last Documented VS:
Initial Vital Signs
Temp Pulse BP Pulse Ox
99.2 F 96 138/75 99
05/06/24 22:48 05/06/24 22:48 05/06/24 22:48 05/06/24 22:48
Last Documented Vital Signs
Temp Pulse Resp BP Pulse Ox
99.2 F 70 16 132/83 99
05/06/24 22:48 05/07/24 01:00 05/07/24 01:00 05/07/24 01:00 05/07/24 01:30
<Ray Desai, DO - Last Filed: 05/07/24 02:52>
Orders/Labs/Results
Orders:
Orders
05/06/24 23:14
0.9% Sodium Chloride 250 ml [Nss] 250 ml IV BOLUS
05/06/24 23:18
Complete Blood Count/With Diff Urgent
05/06/24 23:23
STOOL [C difficile Antigen & Toxins] Urgent
BRIDGET Source: Feces/Stool
Specimen Description:
Date Specimen was Collected: 05/07/24
Time Specimen was Collected: 01:42
Stool Culture Urgent
BRIDGET Source: Feces/Stool
Specimen Description:
Date Specimen was Collected: 05/07/24
Time Specimen was Collected: 01:43
05/06/24 23:24
Comprehensive Metabolic Panel Urgent
05/06/24 23:50
0.9% Sodium Chloride 1000 ml [Nss] 1,000 ml IV BOLUS
05/07/24 00:15
CT Abd/pelvis W Iv Cont Urgent
Reason For Exam: pain bleeding
05/07/24 01:52
Admit/Transfer Patient As Directed
Co-Sign Provider:
Level of Care: Inpatient admission
Assign to:: Telemetry
Physician / Group: htay
Diagnosis: acute rectal bleed
Reason for Telemetry: Other
Other Reason for Telemetry: acute rectal bleed
Date to Stop Telemetry: 05/09/24
Time to Stop Telemetry: 11:00
Reason for Hospitalization: acute rectal bleed
Expected length of stay greater than two midnights?: Yes
ELOS- Estimated Length of Stay in days: 3
I certify the patient meets the requirements for IP care: Yes
05/07/24 01:53
Code Status As Directed
Resuscitation Status: Full Code
05/09/24 11:00
DC Protocol for Telemetry ONCE
Abnormal Lab Results
05/06/24 05/06/24
23:18 23:24
WBC 11.6 H 10^3/uL
(4.8-10.8)
RBC 4.11 L 10^6/uL
(4.70-6.10)
Hgb 12.8 L g/dL
(13.0-18.0)
Hct 36.5 L %
(39.0-52.0)
MCH 31.1 H pg
(27.0-31.0)
Plt Count 412 H 10^3/uL
(130-400)
Absolute Neuts (auto) 9.3 H 10^3/uL
(1.4-6.5)
Absolute Lymphs (auto) 0.5 L 10^3/uL
(1.2-3.4)
Absolute Monos (auto) 1.6 H 10^3/uL
(0.1-0.6)
Neutrophils % 80.0 H %
(42.2-75.2)
Lymphocytes % 4.6 L %
(20.5-51.1)
Monocytes % 13.8 H %
(1.7-9.3)
BUN 32 H mg/dl
(9-20)
Glucose 117 H mg/dl
(70-99)
Total Protein 6.1 L g/dl
(6.3-8.2)
Albumin 3.4 L g/dl
(3.5-5.0)
05/06/24 23:18
05/06/24 23:24
Vital Signs
Initial and Last Documented VS:
Initial Vital Signs
Temp Pulse BP Pulse Ox
99.2 F 96 138/75 99
05/06/24 22:48 05/06/24 22:48 05/06/24 22:48 05/06/24 22:48
Last Documented Vital Signs
Temp Pulse Resp BP Pulse Ox
99.2 F 70 16 132/83 99
05/06/24 22:48 05/07/24 01:00 05/07/24 01:00 05/07/24 01:00 05/07/24 01:30
<Ray Desai DO - Last Filed: 05/07/24 02:52>
*Critical Care Note
Total Time (30-74mins, 75-104mins- exclusive of procedures): Not Applicable
<Toro Shahid MD, Resident - Last Filed: 05/07/24 01:32>
Update Note
Update Note:
79-year-old male with history of prostate cancer presented to the ED with rectal bleeding.
Differential diagnosis
#1 diverticulosis/diverticulitis
#2. AVM
#3 malignancy
#4 upper GI bleed
5. Hemorrhoids
6. Malignancy
Patient is hemodynamically stable.
-Checking CBC, CMP, stool cultures for C. difficile, CT scan of the abdomen and pelvis.
CT scan shows chronic wall thickening of the descending colon to the rectum, compatible with underlying colitis, similar to prior. No bowel obstruction normal gallbladder. Plan is to admit the patient because of the bright red rectal bleeding.
Might need colonoscopy. Consult GI.
ED Attending Note
<Toro Shahid MD, Resident - Last Filed: 05/07/24 01:32>
-
Portions of this chart may have been created with voice recognition software.� Occasional wrong word or��sound alike� substitutions may have occurred due to the inherent limitations of voice recognition software.
<Ray Desai, DO - Last Filed: 05/07/24 02:52>
ED Attending Note
Patient seen and examined by attending physician: Yes
I performed a history and physical exam of patient and discussed management with resident, I reviewed resident's note and agree with documented findings and plan of care.: Yes
ED Attending Note:
Seen with resident agree with assessment plan patient known to me from prior visit presents with crampy abdominal pain with constipation and loose stool with blood prior C-scope noted will check stool studies and CAT scan
Discharge Plan
Departure
Patient Disposition: Admit
Date of Disposition: 05/07/24
Time of Disposition: 01:29
Presentation/result/management discussed w/ accepting MD/DO: Hospitalist
Patient with high blood pressure during this ER visit?: No
Discharge Problem:
RB (rectal bleeding)
Interventions
Interventions:
*Risk Screen - Suicide Last Done: 05/06/24 22:48
*General Assessment Last Done: 05/06/24 22:48
*Neglect/Abuse Screening Last Done: 05/06/24 22:48
FQ-Egyqzt-Bcisjcnyvl Assessment Last Done: 05/06/24 23:04
ED- Cardiac Assessment Last Done: 05/06/24 23:04
ED- Pulmonary Assessment Last Done: 05/06/24 23:04
[2024-05-06 23:32] LABS: % Basophils 0.3 % (0-2); % Immature Granulocytes 0.3 % (0-0.5); % Lymphocytes 4.6 % (20.5-51.1); % Monocytes 13.8 % (1.7-9.3); Absolute Eosinophils 0.1 10^3/uL (0-0.7); Absolute Lymphocytes 0.5 10^3/uL (1.2-3.4); Absolute Monocytes 1.6 10^3/uL (0.1-0.6); Absolute Neutrophils 9.3 10^3/uL (1.4-6.5); Hematocrit 36.5 % (39.0-52.0); Hemoglobin 12.8 g/dL (13.0-18.0); Mean Corp Hgb Conc. 35.1 g/dL (33.0-37.0); Mean Corpuscular Hgb 31.1 pg (27.0-31.0); Mean Corpuscular Volume 88.8 fL (80.0-94.0); Mean Platelet Volume 9.4 fL (7.4-10.4); Nucleated Red Blood Cells % 0 % (-); Platelet Count 412 10^3/uL (130-400); Red Blood Cell Count 4.11 10^6/uL (4.70-6.10); White Blood Cell Count 11.6 10^3/uL (4.8-10.8)
[2024-05-06 23:43] LABS: ALT (SGPT) 28 U/L (0-50); AST (SGOT) 23 U/L (17-59); Albumin 3.4 g/dl (3.5-5.0); Alkaline Phosphatase 102 U/L (38-126); Blood Urea Nitrogen 32 mg/dl (9-20); Calcium 9.1 mg/dl (8.4-10.2); Carbon Dioxide 22 mmol/L (22-30); Chloride 106 mmol/L (98-107); Glucose 117 mg/dl (70-99); Potassium 4.4 mmol/L (3.5-5.1); Sodium 139 mmol/L (135-145); Total Bilirubin 0.7 mg/dl (0.2-1.3); Total Protein 6.1 g/dl (6.3-8.2); eGFR > 60.00
[2024-05-06] MEDS: NSS 250 IV (23:46)
[2024-05-07] VITALS (8 sets, daily range): BP systolic 132–175; BP diastolic 78–96; PULSE 78–112; BMI 21.8
[2024-05-07] MEDS: NSS 1000 IV ×3 (00:49→15:34)
--- NOTE | 2024-05-07 01:48 | HPS.HSE ---
Family Physician
-
Family Physician: Jaycee Middleton
Chief Complaint
-
rectal bleed all day long
History of Present Illness
79M HX CA prostate s/p prostatectomy, on recent XRT seen at ER for evaluation for rectal bleed all day long
HX CA prostate cancer, s/p prostatectomy at [facility] approximately 15 years ago.
More recently due to rise in PSA, he underwent XRT to the prostate bed w/ Dr. Briceño at [facility], finishing 2 weeks ago
Medical History
Past Medical History
Past Medical History: Reports Other
Additional Past Medical History:
Prostate Cancer s/p Prostatectomy and Radiation
Essential Hypertension
GERD
Past Surgical History: Reports Other
Additional Past Surgical History:
Prostatectomy
Appendectomy
Right Total Replacement
Social History
Tobacco: Non-smoker
Alcohol: None
Family History
Family History: Not pertinent
Allergies / Home Medications
Allergies reflects when Allergies were last updated in [facility].
Home Medications with original date entered in [facility]
Allergy/Medication List:
Allergies
Allergy/AdvReac Type Severity Reaction Status Date / Time
No Known Allergies Allergy Verified 04/20/24 18:23
Home Medications
aspirin 81 mg tablet,delayed release 81 mg PO DAILY 04/20/24
bimatoprost 0.01 % eye drops (Lumigan) 1 drp BOTH EYES HS 04/20/24
brinzolamide 1 % eye drops,suspension 1 drp BOTH EYES TID 04/20/24
metoprolol succinate 50 mg tablet,extended release 24 hr (Toprol XL) 50 mg PO DAILY 04/20/24
omeprazole 20 mg tablet,delayed release 20 mg PO DAILY 04/20/24
timolol maleate 0.5 % eye drops 1 drp BOTH EYES BID 04/20/24
vitamins A,C,T-hrvy-szommc 2,148 mcg-113 mg-45 mg-17.4 mg tablet (PreserVision AREDS) 1 tab PO DAILY 04/20/24
Review of Systems
-
Constitutional: Reports No Symptoms
EENT: Reports No Symptoms
Respiratory: Reports No Symptoms
Cardiac: Reports No Symptoms
Abdomen/GI: Reports See HPI
: Reports No Symptoms
Musculoskeletal: Reports No Symptoms
Skin: Reports No Symptoms
Neurological: Reports No Symptoms
Endocrine: Reports No Symptoms
Hematologic/Lymphatic: Reports No Symptoms
Psych: Reports No Symptoms
Physical Exam
Vital Signs
Vital Signs
Temp Pulse Resp BP Pulse Ox
99.2 F 70 16 132/83 99
05/06/24 22:48 05/07/24 01:00 05/07/24 01:00 05/07/24 01:00 05/07/24 01:30
Physical Exam
General: Well Developed, No Apparent Distress, Comfortable and Conversant; No Respiratory Distress or Pain
HEENT: NormoCephalic, Anicteric and Moist mucous membranes
Respiratory: Clear; No Wheezes, Rales or Rhonchi
Cardiac: S1/S2, Regular Rhythm and Tachycardia
Breast: Deferred by me
GI: Soft, Non Tender and Normal Bowel Sounds
Rectal: Deferred by Provider
Genito-urinary: Deferred by me
Musculoskeletal: No Edema
Skin: Warm and Dry
Neuro: AO x 3 and Nonfocal/grossly intact
Psych: Calm and Intact Judgment/Insight
Laboratory Results
-
05/06/24 23:18
05/06/24 23:24
Laboratory Results
Total Bilirubin 0.7 mg/dl (0.2-1.3) 05/06/24 23:24
AST 23 U/L (17-59) 05/06/24 23:24
ALT 28 U/L (0-50) 05/06/24 23:24
Alkaline Phosphatase 102 U/L (38-126) 05/06/24 23:24
Data Reviewed
-
CT Scan: Report Reviewed by me
Lab Data: Labs Reviewed by me
Old Records: Reviewed
Impression/Plan
-
Reviewed VS: T 99.2 HR96 BP 138/75
Data
WCC 11.6
Hgb 12.8 - was 12.1 on 04/23/24
Plt 412
Cr 1.0
e GFR > 60
05/06/24 CT AP with contrast
- chronic wall thickening of descending colon through rectum c/w colitis
- no BWO
- moderate stool burden
- No obstructed uropathy
- Lt LL Pul bleb
Last hospitalist admission: 04/20/24 - 04/23/24
Acute severe radiation-induced proctocolitis
Constipation
Recurrent prostate cancer status post prostatectomy 15 years ago, now treated with radiation
Leukocytosis, likely reactive
Hypokalemia
Benign essential hypertension
Gastroesophageal reflux disease
ASSESSMENT & PLAN
Pending Rx reconciliation
Acute rectal bleed suspect secondary to severe XRT -induced proctocolitis
Recent Constipation but currently more loose watery dirrhea
- T & S
- Blood consented and scanned at ER
- Trend Hgb
- IVF and Clear - ADAT
- Hold Miralax PRN
- Consult Oncology and GI
HX CA Prostate - with biochemical recurrence s/p XRT to prostate bed at [facility]
- s/p prostatectomy - 15 years ago
- Leukocytosis, likely reactive
Essential Hypertension
- cont metoprolol with hold parameters
GERD
- IV Protonix daily
DVT proph: SCDs
Code: Full
IP TLM
--- NOTE | 2024-05-07 04:54 | PTCARENOTE ---
0300 patient admitted to 2129, oriented to room and floor routines. placed on tele box #[id number]. Inst patient to call for assistance to go to [facility] and inst on need for a stool sample. Call treviño with in reach. pt verb understanding.
[2024-05-07 06:36] LABS: Hematocrit 36.4 % (39.0-52.0); Hemoglobin 12.3 g/dL (13.0-18.0)
[2024-05-07 06:58] LABS: ALT (SGPT) 26 U/L (0-50); AST (SGOT) 21 U/L (17-59); Albumin 3.2 g/dl (3.5-5.0); Alkaline Phosphatase 91 U/L (38-126); Blood Urea Nitrogen 25 mg/dl (9-20); Calcium 9.1 mg/dl (8.4-10.2); Carbon Dioxide 26 mmol/L (22-30); Chloride 106 mmol/L (98-107); Estimated Creatinine Clearance 77 ml/min; Glucose 106 mg/dl (70-99); Potassium 4.9 mmol/L (3.5-5.1); Sodium 137 mmol/L (135-145); Total Bilirubin 0.9 mg/dl (0.2-1.3); Total Protein 5.8 g/dl (6.3-8.2); eGFR > 60.00
[2024-05-07] MEDS: NSS (PRESERVATIVE FREE) 10 ML IV (07:57)
[2024-05-07] MEDS: PROTONIX IV 40 MG IV (07:58)
--- NOTE | 2024-05-07 08:38 | W.PN.HOSP.TC ---
Today's Communication/Plan
-
clears
await GI/onc input
Assessment / Plan
Assessment / Plan
pt is a 79 year old male
Acute rectal bleed suspect secondary to severe radiation-induced proctocolitis--was just here from 04/20 to 04/23 for the same--clears--await GI/onc input--of note, HGB HIGHER this admission than previous- Blood consented and scanned at ER - Hold
Miralax PRN
HX CA Prostate - with biochemical recurrence s/p XRT to prostate bed at [facility]- s/p prostatectomy - 15 years ago - Leukocytosis, likely reactive
Essential Hypertension- cont metoprolol with hold parameters
GERD- IV Protonix daily
code status -- Full code
Anticipated Discharge: 24 - 48 hours
Subjective/Interval History
-
Date of Service: May 07, 2024
pt angry that he is not getting meds or solid food
Objective Data
-
Labs:
Laboratory Results
05/06/24 05/06/24 05/07/24
23:18 23:24 06:00
WBC 11.6 H
Hgb 12.8 L 12.3 L
Hct 36.5 L 36.4 L
Plt Count 412 H
Sodium 139 137
Potassium 4.4 4.9
Chloride 106 106
Carbon Dioxide 22 26
BUN 32 H 25 H
Creatinine 1.0 0.8
Glucose 117 H 106 H
Calcium 9.1 9.1
Total Bilirubin 0.7 0.9
AST 23 21
ALT 28 26
Alkaline Phosphatase 102 91
05/07/24 05/07/24
10:56 18:56
WBC
Hgb Pending Pending
Hct Pending Pending
Plt Count
Sodium
Potassium
Chloride
Carbon Dioxide
BUN
Creatinine
Glucose
Calcium
Total Bilirubin
AST
ALT
Alkaline Phosphatase
Vital Signs:
max temp for 24 hours
05/06/24
22:48
Temp 99.2 F
Vital Signs
Temp Pulse Resp BP Pulse Ox
98.2 F 108 18 143/86 100
05/07/24 07:20 05/07/24 07:20 05/07/24 07:20 05/07/24 07:20 05/07/24 07:20
Review of Systems
-
All other systems: Reviewed and negative
Abdomen/GI: Reports Bloody Stools
Physical Exam
-
General: Well Developed, Well Nourished and No Apparent Distress
HEENT: Normocephalic and Atraumatic
Respiratory: Clear to Auscultation; Negative Wheezes or Rhonchi
Cardiac: Regular Rhythm and S1/S2; Negative Murmur
GI: Soft, Nontender, Normal Bowel Sounds and Distended
Musculoskeletal: No Clubbing, No Cyanosis and No Edema
Skin: Warm
Neuro: Awake and Alert
--- NOTE | 2024-05-07 09:07 | CON.GI ---
Addendum entered and electronically signed by Pedro Luis Guerrero MD 05/07/24 12:40:
I saw and examined the patient.
The [employer] ENGINEER or PA's note was reviewed and I agree with the note.
Comment: 79yo male presents with diarrhea and rectal bleeding. He was recently admitted for acute proctocolitis on CT likely acute radiation proctitis. He has hx prostate CA rx'd 15 yrs ago with prostatectomy. Last year PSA was rising leading to
PET scan raising concern for foci in prostate and rib. He underwent XRT in March x 30 sessions and started rib, but was admitted due to difficulty with BMs, treated for radiation proctitis with supportive care, pain meds, laxative. Now presents
with bleeding. Small hemorrhoids on rectal exam. Recently rec'd prednisone course by Radiation Oncology
REC:
Start topical 2.5% HC cream to treat hemorrhoids
Continue fiber which can help with bulking- metmaucil 1 packet daily
Check stool studies
Consider adding questran
For acute radiation proctitis, management is mostly supportive. Butyrate enemas have been used but not on formulary. Avoid flex sig/bx in acute XRT proctitis
Original Note:
Consultation
-
Date/Time Consultation Requested: 05/07/24 @ 02:56
Date/Time Consultation Performed: 05/07/24 @ 09:15
Requesting Provider: Dr. Sneed
Performing Provider: IVONNE Robbins; Dr. Pedro Luis Guerrero
Reason for Consultation: acute rectal bleed, severe XRT -induced proctocolitis
Medical History
Chief Complaint / HPI
Chief Complaint: rectal bleeding
History of Present Illness:
The patient is a 79-year-old male with a past medical history significant for prostate cancer status post prostatectomy 15 years ago, with recent radiation therapy to the prostate bed with [facility], GERD, hypertension,
recent hospitalization for proctocolitis 04/20-04/23, who presented to the emergency room with complaints of rectal bleeding, which we are being asked to evaluate for. Upon review of prior records, the patient was admitted to [facility] on 04/20
with reports of pelvic pain and constipation. He had undergone radiation therapy on April 14 (pelvis) and April 20 (rib) for recurrence of his prostate cancer and had been having some difficulty with his bowels after that time. He underwent a CT scan
which showed severe acute proctocolitis from the rectum to sigmoid colon and moderate diffuse urinary bladder wall thickening suggestive of cystitis. There was also findings of a moderate amount of fecal material throughout the proximal colon other
findings as noted on the CT report. Antibiotics were started initially but discontinued, and they continued supportive care. He was started on MiraLAX daily to prevent constipation and was advised to follow-up with his radiation oncologist after
discharge. It was thought that his proctocolitis was secondary to radiation. Stool studies at that time were negative for C. difficile, Salmonella, Shigella, E. coli, and Campylobacter. Today he reports for the last 3 weeks since his last
radiation therapy(as above) he has been having ongoing diarrhea. He notes after his most recent treatment he went home and developed difficulty moving his bowels along with difficulty urinating, and was evaluated at the hospital here on 04/20 at the
symptoms continued as noted above. He reports that he had been advised to take Aleve 2 tablets twice a day with food to help with some of his symptoms and discomforts which he has been doing for the last 3 weeks. He notes that his radiation had
been on hold since that time given his ongoing symptoms. After being discharged on 04/23, he had continued with loose stools, and notes he had lost about 10 to 12 pounds over the past 3 weeks given his ongoing diarrhea. He reports that he has been
eating okay with a good appetite but despite this has still lost the weight. He reports that his stool is mostly loose, with very infrequent formed or soft stools. He denies any significant rectal pain or burning but does have lower abdominal
cramping that happens with bowel movements. He denies any fevers or chills, but does have sweats given he is getting hormone injections once a month. He does feel bloated with abdominal distention and gassy. He notes yesterday in the afternoon he
had urgency to move his bowels and noticed a significant amount of blood in the toilet. This continued warranting ER evaluation. He denies any chest pain, dizziness, or shortness of breath. He denies any upper GI symptoms such as nausea,
vomiting, or dysphagia. He takes a daily PPI for history of reflux. He denies any changes in his diet or recent travel. He is unsure if he had been on antibiotics recently, but per review of his records from his previous hospitalization he did
receive antibiotics in the ER which were discontinued. His most recent radiation treatments were pelvic radiation on April 14 and right rib radiation on April 20. He currently reports that the bleeding is lessened and some brown stool is mixed in
with the blood. He underwent CT imaging in the ER but official read is pending. Per overnight read showed chronic wall thickening and ascending colon to the rectum consistent with colitis with no evidence of bowel obstruction and moderate stool
burden. C. difficile and stool culture were sent and are pending. His hemoglobin has been stable at 12.8--> 12.3. He was placed on clear liquid diet and admitted for further evaluation by GI. Other pertinent lab findings include WBC 11.6, sodium
139, potassium 4.4, BUN 32, creatinine 1.0, normal LFTs. He has had no fevers and otherwise has been hemodynamically stable.
Past Medical History
Past Medical History: Cancer (Prostate cancer with prostatectomy 15 years ago, with recent recurrence of disease with radiation to the pelvis 04/14 and right rib April 20), GERD and HTN
Past Surgical History: Appendectomy, Orthopedic (Right total hip replacement, left orbital socket surgery for football injury in his 20s) and Other (Prostatectomy)
Social History
Tobacco: Non-Smoker
Alcohol: None
Drug: None
Family History
Family History: Reviewed & Not Pertinent
Allergies / Home Medications
Allergy/AdvReac Type Severity Reaction Status Date / Time
No Known Allergies Allergy Verified 05/06/24 22:48
�Medication �Instructions �Recorded
aspirin 81 mg tablet,delayed 81 mg PO DAILY Blood Clot 04/20/24
release Prevention/Tx
bimatoprost 0.01 % eye drops 1 drp BOTH EYES HS Eye Condition 04/20/24
(Lumigan)
brinzolamide 1 % eye 1 drp BOTH EYES TID Eye Condition 04/20/24
drops,suspension
metoprolol succinate 50 mg 50 mg PO DAILY Blood Pressure 04/20/24
tablet,extended release 24 hr
(Toprol XL)
omeprazole 20 mg tablet,delayed 20 mg PO DAILY Gastrointestinal 04/20/24
release Issue
timolol maleate 0.5 % eye drops 1 drp BOTH EYES BID Eye Condition 04/20/24
vitamins A,C,T-jsts-qruhyh 2,148 1 tab PO DAILY Supplement 04/20/24
mcg-113 mg-45 mg-17.4 mg tablet
(PreserVision AREDS)
acetaminophen 500 mg tablet 1,000 mg (2 x 500 mg) PO Q6HPRN 04/23/24
(Tylenol Extra Strength) PRN mild pain/ fever>100.5F #100
tabs
simethicone 80 mg chewable tablet 80 mg PO QIDPRN PRN gas #30 tabs 04/23/24
Review of Systems
-
History Source: Patient
Constitutional: Reports Weight Loss and Other (sweats)
EENT: Reports No Symptoms
Respiratory: Reports No Symptoms
Cardiac: Reports No Symptoms
Abdomen/GI: Reports Diarrhea, Bloody Stools and Other (lower abdominal cramping)
: Reports Difficulty Voiding
Skin: Reports No Symptoms
Neurological: Reports No Symptoms
Vital Signs
Temp Pulse Resp BP Pulse Ox
98.2 F 108 18 143/86 100
05/07/24 07:20 05/07/24 07:20 05/07/24 07:20 05/07/24 07:20 05/07/24 07:20
Physical Exam
Exam
General: Well Developed, No Apparent Distress and Comfortable
HEENT: Normocephalic, Anicteric and Atraumatic
Respiratory: Clear
Cardiac: S1/S2 and Regular Rhythm
Breast: N/A
GI: Soft, Normal Bowel Sounds, Tender (minimally tender lower abdomen) and Distended
Musculoskeletal: No Edema
Skin: Warm and Dry
Neuro: Awake, Alert and Oriented
Psych: Calm
Results
WBC 11.6 10^3/uL (4.8-10.8) H 05/06/24 23:18
Hgb 12.3 g/dL (13.0-18.0) L 05/07/24 06:00
Hct 36.4 % (39.0-52.0) L 05/07/24 06:00
MCV 88.8 fL (80.0-94.0) 05/06/24 23:18
Plt Count 412 10^3/uL (130-400) H 05/06/24 23:18
Absolute Neuts (auto) 9.3 10^3/uL (1.4-6.5) H 05/06/24 23:18
Sodium 137 mmol/L (135-145) 05/07/24 06:00
Potassium 4.9 mmol/L (3.5-5.1) 05/07/24 06:00
Chloride 106 mmol/L (98-107) 05/07/24 06:00
Carbon Dioxide 26 mmol/L (22-30) 05/07/24 06:00
BUN 25 mg/dl (9-20) H 05/07/24 06:00
Creatinine 0.8 mg/dL (0.7-1.3) 05/07/24 06:00
Calcium 9.1 mg/dl (8.4-10.2) 05/07/24 06:00
Total Bilirubin 0.9 mg/dl (0.2-1.3) 05/07/24 06:00
AST 21 U/L (17-59) 05/07/24 06:00
ALT 26 U/L (0-50) 05/07/24 06:00
Alkaline Phosphatase 91 U/L (38-126) 05/07/24 06:00
Diagnostic Image Results:
05/06/24 CT A/P: pending report
04/20/24 CT A/P w/IV only: IMPRESSION:
1. SEVERE ACUTE PROCTOCOLITIS of the rectum and sigmoid colon. Diagnostic possibilities are (1) acute infection, (2) acute exacerbation of ulcerative colitis, or (3) radiation colitis.
2. Moderate diffuse urinary bladder wall thickening suggesting cystitis.
3. 4.8 cm lymphocele or seroma along the left pelvic sidewall.
4. Previous prostatectomy.
5. Mild to moderate diverticulosis in the descending and sigmoid colon.
6. Moderate amount of fecal material throughout the proximal colon.
7. Mild diffuse hepatic steatosis.
8. Small hiatal hernia.
9. 3 mm nonobstructing left intrarenal calculus.
10. 1.6 cm left adrenal adenoma.
11. Grade 1 anterolisthesis of L4 on L5 secondary to severe facet joint arthrosis.
12. 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
Prior GI Procedures:
EGD: 06/26/2015 Dr. Gillespie: Normal examined duodenum. Multiple gastric polyps. Biopsied. Hiatus hernia. Z-line variable, 40 cm from the incisors. Biopsied. Widely patent Schatzki ring. No gross lesions in esophagus. Path showing fundic gland polyp,
no Dorsey's esophagus but chronic inflammation of the esophagus without EoE
01/16/2015 Dr. Gillespie: Normal examined duodenum. A few gastric polyps. Biopsied. Hiatus hernia. Z-line irregular, 39 cm from the incisors. Biopsied. LA Grade B esophagitis. Biopsied. Tortuous esophagus. Widely patent Schatzki ring. Path showing
gastritic, neg Dorsey's, H pylori, IM stomach
Colonoscopy: 01/13/23 Dr. Felton: One 2 mm hyperplastic polyp in the descending colon, removed with a jumbo cold forceps. Resected and retrieved. Diverticulosis in the sigmoid colon. The examination was otherwise normal.
04/07/2017 Dr. Gillespie: Perianal skin tag found on perianal exam. The examined portion of the ileum was normal. Diverticulosis in the sigmoid colon and in the descending colon. Three 1 to 2 mm hyperplastic polyps in the rectum, removed with a
jumbo cold forceps. Resected and retrieved.
Assessment / Plan
-
The patient is a 79-year-old male with a past medical history significant for prostate cancer status post prostatectomy 15 years ago, with recent radiation therapy to the prostate bed with [facility], GERD, hypertension,
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 His hemoglobin has been stable at 12.8-->12.3. He
reports that the rectal bleeding is slowing down with his last episode 3 hours ago. His stool studies were present with C. difficile and stool culture which are pending. He denies any overt signs of infection such as fevers or chills, but does get
sweats which she attributes to his hormone therapy. Mild leukocytosis on admission with a WBC of 11.6. BUN is elevated at 32, possibly from dehydration although he had been taking Aleve as well twice daily for the past 3 weeks. He is starting on
a clear liquid diet this morning. His radiation therapy has been on hold since his last hospitalization in early April (per pt was scheduled for 34 rounds total).
Problem list:
-Recurrent prostate cancer with recent radiation therapy April 14April 3 followed at [facility], initial dx 15 years ago s/p prostatectomy
-rectal bleeding
-CT imaging showing chronic proctocolitis (per night read)
-mild normocytic anemia
-leukocytosis
-recent admission for proctocolitis
-elevated BUN
-HTN
-chronic GERD
Recommendations:
--Etiology of rectal bleeding likely due to to radiation proctitis v less likely diverticular v infectious etiology v other. CT imaging report is pending but overnight read indicating chronic proctocolitis.
----Management for acute radiation proctitis is usually self-limiting but given his ongoing symptoms and now with bleeding may need to consider alternative management. (Per Up-To-Date pts may benefit from Sodium butyrate enemas for 3 weeks in acute
onset to induce remission of symptoms/manage inflammation if supportive care does not help. For chronic proctitis Sucralfate enemas have also improved symptoms). For now will monitoring for improvement of his bleeding with supportive care as below.
-Await official CT read
-Continue to trend H/H
-IV fluids for hydration
-Will await stool studies to rule out infectious etiology
-If negative for infection to trial antidiarrheals once his bleeding resolves
-To consider Flex sig if he does not have improvement with bleeding but given his recent radiation therapy would hold off due to risk bowel/rectal injury unless he has significant bleeding, reviewed with Dr. Guerrero.
-OK for CLD as bleeding is slowing down
-He reports he had been taking Aleve twice a day for the last few weeks which may have contributed to the bleeding given the inflammation. Would hold further NSAID's. I do not feel this would be an acute UGI bleed given his BRBPR and hemodynamic
stability. Elevated BUN likely more related to dehydration with diarrhea.
-Continue once daily PPI with hx chronic GERD
-MiraLax is on hold given diarrhea
-Will follow
Data Reviewed
-
CT Scan: Report Reviewed by me
Old Records: Reviewed
-
-
Thank you for consultation and allowing me to participate in the patient's care. Please call the cone treat[facility] GI physician during the after hours with any questions or concerns.
--- NOTE | 2024-05-07 10:32 | CON.ONC ---
Impression
Impression
- radiation proctitis, acute
- prostate cancer with recurrence
- rectal bleeding
Plan
Plan
# Rectal bleeding: suspect this is due to acute proctitis s/p radiation with imaging findings on last admission showing significant inflammation in this area.
- hgb stable.
- GI consulted. agree that acute proctitis is commonly self limiting. treatments that can be considered if no improvement include mesalamine, steroid enemas. Sodium butyrate can be used if having tenesmus, urgency, anti-motility agents such as
imodium, lomotil can be used if having diarrhea. He feels symptoms improving and would like to hold off on enemas for now and reassess in next 24 hours.
- He follows with Dr. rainey at [facility] who can continue to monitor his symptoms and recommend interventions if needed.
# Prostate cancer
- initially underwent prostatectomy 15 years ago.
- recent recurrence with oligo-metastatic dz.
- s/p XRT to pelvis and rib lesion.
- defer to primary oncology team for ongoing management.
Patient History
History of Present Illness
brendon is a 79M HX w/ hx of prostate cancer s/p prostatectomy 15 years ago with recent recurrence. He underwent salvage radiation with Dr. rainey at [facility] to pelvis (last 04/14)s as well as right rib lesion (04/20). He is now admitted with BRBPR. Hgb
12.8 g/dl on admission which is similar to values earlier this month. He was admitted to 04/20 with pelvic pain and constipation. CT at that time showed severe acute proctocolitis from the rectum to sigmoid colon and moderate diffuse urinary
bladder wall thickening suggestive of cystitis. There was also findings of a moderate amount of fecal material throughout the proximal colon other findings as noted on the CT report. He was given bowel regimen with resolution of constipation and
actually noted some diarrhea/loose stools over past 2 weeks. He says he was using imodium at some point but was told to stop. He notes pelvic cramping, urgency and a couple episodes of fecal incontinence. He does feel like symptoms have improved
since admission and was able to actually sleep for several hours without having to get up and go to the bathroom. Denies fevers, chills. GI consulted who recommended monitoring for now with consideration of enemas if no improvement.
Past-Medical/Surgical History
- hx of prostate cancer with late recurrence
Patient Medication
�Medication �Instructions �Recorded �Confirmed �Last Taken �Type
aspirin 81 mg tablet,delayed 81 mg PO DAILY Blood Clot 04/20/24 05/07/24 05/06/24 08:00 History
release Prevention/Tx
bimatoprost 0.01 % eye drops 1 drp BOTH EYES HS Eye Condition 04/20/24 05/07/24 05/06/24 22:00 History
(Lumigan)
brinzolamide 1 % eye 1 drp BOTH EYES TID Eye Condition 04/20/24 05/07/24 05/06/24 22:00 History
drops,suspension
metoprolol succinate 50 mg 50 mg PO DAILY Blood Pressure 04/20/24 05/07/24 05/06/24 08:00 History
tablet,extended release 24 hr
(Toprol XL)
omeprazole 20 mg tablet,delayed 20 mg PO DAILY Gastrointestinal 04/20/24 05/07/24 05/06/24 08:00 History
release Issue
timolol maleate 0.5 % eye drops 1 drp BOTH EYES BID Eye Condition 04/20/24 05/07/24 05/06/24 22:00 History
vitamins A,C,X-valx-qaprzl 2,148 1 tab PO DAILY Supplement 04/20/24 05/07/24 05/06/24 08:00 History
mcg-113 mg-45 mg-17.4 mg tablet
(PreserVision AREDS)
acetaminophen 500 mg tablet 1,000 mg (2 x 500 mg) PO Q6HPRN 04/23/24 05/07/24 Unknown Rx
(Tylenol Extra Strength) PRN mild pain/ fever>100.5F #100
tabs
simethicone 80 mg chewable tablet 80 mg PO QIDPRN PRN gas #30 tabs 04/23/24 05/07/24 Unknown Rx
Active Medications
Generic Name Dose Route Start Last Admin
Trade Name Freq PRN Reason Stop Dose Admin
Brinzolamide 0 drop 05/07/24 16:00
Brinzolamide 1% (Ophthalmic Suspension) 15 Ml Bottle BOTH EYES 06/04/24 15:59
TID BRITNEY
Sodium Chloride 1,000 mls @ 80 mls/hr 05/07/24 02:56 05/07/24 03:14
Nss IV 1,000 mls
.[id number] BRITNEY Administration
Latanoprost 0 drop 05/07/24 22:00
Latanoprost 0.005% (Ophthalmic Solution) 2.5 Ml Bottle BOTH EYES 06/04/24 21:59
HS BRITNEY
Metoprolol Succinate 50 mg 05/07/24 08:55
Metoprolol 50 Mg Extended Release Tablet PO 06/04/24 08:54
DAILY BRITNEY
Pantoprazole Sodium 40 mg 05/07/24 08:00 05/07/24 07:58
Pantoprazole Sodium 40 Mg/10 Ml Vial IV 06/04/24 07:59 40 mg
DAILY BRITNEY Administration
Sodium Chloride 0 flush 05/07/24 04:00
Sodium Chloride 0.9% (Flush) Syringe IV 06/04/24 03:59
PER PROTOCOL BRITNEY
Sodium Chloride 10 ml 05/07/24 08:00 05/07/24 07:57
Sodium Chloride 0.9% (Preservative Free) 10 Ml Vial IV 06/04/24 07:59 10 ml
DAILY BRITNEY Administration
Timolol Maleate 0 drop 05/07/24 20:00
Timolol 0.5% (Ophthalmic Solution) Bottle BOTH EYES 06/04/24 19:59
BID BRITNEY
Vitamin C/Vitamin E 1 cap 05/08/24 08:00
Vit C/Vit E/Lutein/Min/[place]-3 (Ocuvite) Capsule PO 08/18/24 07:59
DAILY BRITNEY
Review of Systems
-
History Source: Patient
Constitutional: Reports Fatigue; Denies Fever
GI: Reports Abdominal Pain, Diarrhea and Bloody Stools; Denies Nausea, Vomiting or Black Stools
Musculoskeletal: Reports Joint Pain
Neuro: Denies Dizzy or Headache
Hematologic/Lymphatic: Reports Bleeding
Physical Exam
-
General: Well Developed, Well Nourished and No Apparent Distress
HEENT: Negative Jaundice
Pulmonary: Clear
GI: Soft and Normal Bowel Sounds; Negative Distended
Musculoskeletal: No Edema
Neurology: Non Focal
Labs
Lab Results
WBC 11.6 10^3/uL (4.8-10.8) H 05/06/24 23:18
RBC 4.11 10^6/uL (4.70-6.10) L 05/06/24 23:18
Hgb 12.3 g/dL (13.0-18.0) L 05/07/24 06:00
Hct 36.4 % (39.0-52.0) L 05/07/24 06:00
MCV 88.8 fL (80.0-94.0) 05/06/24 23:18
MCH 31.1 pg (27.0-31.0) H 05/06/24 23:18
MCHC 35.1 g/dL (33.0-37.0) 05/06/24 23:18
RDW 13.0 % (11.5-14.5) 05/06/24 23:18
Plt Count 412 10^3/uL (130-400) H 05/06/24 23:18
MPV 9.4 fL (7.4-10.4) 05/06/24 23:18
Abs Immat Gran (auto) 0.0 10^3/uL (0-0.05) 05/06/24 23:18
Absolute Neuts (auto) 9.3 10^3/uL (1.4-6.5) H 05/06/24 23:18
Absolute Lymphs (auto) 0.5 10^3/uL (1.2-3.4) L 05/06/24 23:18
Absolute Monos (auto) 1.6 10^3/uL (0.1-0.6) H 05/06/24 23:18
Absolute Eos (auto) 0.1 10^3/uL (0-0.7) 05/06/24 23:18
Absolute Basos (auto) 0.0 10^3/uL (0-0.2) 05/06/24 23:18
Immature Gran % 0.3 % (0-0.5) 05/06/24 23:18
Neutrophils % 80.0 % (42.2-75.2) H 05/06/24 23:18
Lymphocytes % 4.6 % (20.5-51.1) L 05/06/24 23:18
Monocytes % 13.8 % (1.7-9.3) H 05/06/24 23:18
Eosinophils % 1.0 % (0-6) 05/06/24 23:18
Basophils % 0.3 % (0-2) 05/06/24 23:18
Creatinine 0.8 mg/dL (0.7-1.3) 05/07/24 06:00
Vital Signs
Vital Signs
Temp Pulse Resp BP Pulse Ox
98.2 F 108 18 143/86 100
05/07/24 07:20 05/07/24 07:20 05/07/24 07:20 05/07/24 07:20 05/07/24 07:20
[2024-05-07 11:12] LABS: Hematocrit 31.2 % (39.0-52.0); Hemoglobin 10.8 g/dL (13.0-18.0)
--- NOTE | 2024-05-07 13:10 | CM ---
Recently discharged from on 05/05/24. Patient lives with his in a house with 1 step to enter. [employer] was independent and drove. There is a SPC in the home that patient does not use. No in-home services. No psychiatric hospitalizations.
[facility] and PCP is Dr. Jaycee Middleton. Anticipate no needs at discharge.
--- NOTE | 2024-05-07 13:15 | CM ---
Recently discharged from on 04/23/24. Patient lives with his in a house with 1 step to enter. [employer] was independent and drove. There is a SPC in the home that patient does not use. No in-home services. No psychiatric hospitalizations.
[facility] is [facility] and PCP is Dr. Jaycee Middleton. Anticipate no needs at discharge.
[2024-05-07] MEDS: METAMUCIL, KONSYL 1 PACKET PO (14:04)
[2024-05-07] MEDS: HYDROCORTISONE 2.5% CREAM 1 APPLIC TOPICAL (15:31)
[2024-05-07] MEDS: AZOPT 1% OPHTHALMIC SUSPENSION 1 DROP BOTH EYES ×2 (15:34→20:45)
[2024-05-07 19:01] LABS: Hematocrit 31.9 % (39.0-52.0); Hemoglobin 11.3 g/dL (13.0-18.0)
[2024-05-07] MEDS: HYDROCORTISONE 2.5% CREAM TOPICAL (20:43)
[2024-05-07] MEDS: TIMOPTIC 0.5% OPHTHALMIC SOLUTION 1 DROP BOTH EYES (20:45)
[2024-05-07] MEDS: XALATAN OPHTHALMIC SOLUTION 1 DROP BOTH EYES (20:46)
[2024-05-08 03:00] VITALS: BP 139/84; BP 147/87; BP 149/89; PULSE 107; PULSE 89; PULSE 93
[2024-05-08] MEDS: NSS 1000 IV (05:31)
[2024-05-08 07:15] VITALS: BP 159/93
--- NOTE | 2024-05-08 08:12 | W.PN.HOSP.TC ---
Today's Communication/Plan
-
low res diet
likely d/c after GI sees
Assessment / Plan
Assessment / Plan
pt is a 79 year old male
Acute rectal bleed suspect secondary to severe radiation-induced proctocolitis--was just here from 04/20 to 04/23 for the same--apprec GI/onc input--low res diet--of note, HGB HIGHER this admission than previous- Blood consented and scanned at ER
HX CA Prostate - with biochemical recurrence s/p XRT to prostate bed at [facility]- s/p prostatectomy - 15 years ago - Leukocytosis, likely reactive
Essential Hypertension- cont metoprolol with hold parameters
GERD- IV Protonix daily
code status -- Full code
Anticipated Discharge: Today
Subjective/Interval History
-
Date of Service: May 08, 2024
pt wants food
Objective Data
-
Vital Signs:
max temp for 24 hours
05/07/24
19:00
Temp 99.9 F
Vital Signs
Temp Pulse Resp BP Pulse Ox
98.8 F 98 16 159/93 99
05/08/24 07:15 05/08/24 07:15 05/08/24 07:15 05/08/24 07:15 05/08/24 07:15
I&O
05/07/24 05/08/24 05/09/24
06:59 06:59 06:59
Intake Total 2240 / 2240
Output Total 100 / 100
Balance 2140 / 2140
Review of Systems
-
All other systems: Reviewed and negative
Abdomen/GI: Reports Other (no BMs overnight)
Physical Exam
-
General: Well Developed, Well Nourished and No Apparent Distress
HEENT: Normocephalic and Atraumatic
Cardiac: Regular Rhythm and S1/S2; Negative Murmur
GI: Soft, Nontender, Nondistended and Normal Bowel Sounds
Musculoskeletal: No Clubbing, No Cyanosis and No Edema
Neuro: Awake and Alert
[2024-05-08] MEDS: METAMUCIL, KONSYL 1 PACKET PO (08:26)
[2024-05-08] MEDS: TOPROL XL 50 MG PO (08:27)
[2024-05-08] MEDS: OCUVITE SOFTGEL 1 CAP PO (08:27)
[2024-05-08] MEDS: NSS (PRESERVATIVE FREE) 10 ML IV (08:27)
[2024-05-08] MEDS: AZOPT 1% OPHTHALMIC SUSPENSION 1 DROP BOTH EYES ×3 (08:28→20:35)
[2024-05-08] MEDS: PROTONIX IV 40 MG IV (08:28)
[2024-05-08] MEDS: HYDROCORTISONE 2.5% CREAM 1 APPLIC TOPICAL (08:28)
[2024-05-08] MEDS: TIMOPTIC 0.5% OPHTHALMIC SOLUTION 1 DROP BOTH EYES ×2 (08:29→20:35)
[2024-05-08 11:15] VITALS: BP 143/80
--- NOTE | 2024-05-08 11:18 | W.PN.GI.CBS2 ---
Today's Communication / Plan
-
I told pt it may take some time for acute radiation proctitis to resolve
Continue supportive care, fiber (Citrucel)
Use HC cream as needed for hemorrhoids
OK for d/c
Will leave contact info for any GI issues after d/c and to follow up as needed
Assessment / Plan
-
The patient is a 79-year-old male with a past medical history significant for prostate cancer status post prostatectomy 15 years ago, with recent radiation therapy to the prostate bed with [facility], GERD, hypertension,
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 His hemoglobin has been stable at 12.8-->12.3. He
reports that the rectal bleeding is slowing down with his last episode 3 hours ago. His stool studies were present with C. difficile and stool culture which are pending. He denies any overt signs of infection such as fevers or chills, but does get
sweats which she attributes to his hormone therapy. Mild leukocytosis on admission with a WBC of 11.6. BUN is elevated at 32, possibly from dehydration although he had been taking Aleve as well twice daily for the past 3 weeks. He is starting on
a clear liquid diet this morning. His radiation therapy has been on hold since his last hospitalization in early April (per pt was scheduled for 34 rounds total).
Problem list:
-Recurrent prostate cancer with recent radiation therapy April 14April 20 followed at [facility] initial dx 15 years ago s/p prostatectomy
-rectal bleeding
-CT imaging showing chronic proctocolitis (per night read)
-mild normocytic anemia
-leukocytosis
-recent admission for proctocolitis
-elevated BUN
-HTN
-chronic GERD
Subjective
Subjective
Date of Service: May 08, 2024
No more bleeding. No BMs today which concerns him
Objective
Data Reviewed
Laboratory Data:
Laboratory Results
05/07/24 18:54
05/07/24 06:00
Laboratory Results
Total Bilirubin 0.9 mg/dl (0.2-1.3) 05/07/24 06:00
AST 21 U/L (17-59) 05/07/24 06:00
ALT 26 U/L (0-50) 05/07/24 06:00
Alkaline Phosphatase 91 U/L (38-126) 05/07/24 06:00
Vital Signs and I&O:
Vital Signs
Temp Pulse Resp BP Pulse Ox
98.8 F 98 16 159/93 99
05/08/24 07:15 05/08/24 08:27 05/08/24 07:15 05/08/24 08:27 05/08/24 07:15
I&O
05/07/24 05/08/24 05/09/24
06:59 06:59 06:59
Intake Total 2240 / 2240
Output Total 100 / 100
Balance 2140 / 2140
Physical Exam
Physical Exam
GI: Soft and Non Distended
--- NOTE | 2024-05-08 11:24 | W.PN.ONC2 ---
Today's Communication / Plan
-
- rectal bleeding seems to be improved/ resolved. Diarrhea also seems better.
- apprec GI input.
Impression
Impression
- radiation proctitis, acute
- prostate cancer with recurrence
- rectal bleeding
Plan
Plan
# Rectal bleeding: suspect this is due to acute proctitis s/p radiation with imaging findings on last admission showing significant inflammation in this area.
- hgb stable.
- GI consulted. agree that acute proctitis is commonly self limiting. treatments that can be considered if no improvement include mesalamine, steroid enemas. Sodium butyrate can be used if having tenesmus, urgency, anti-motility agents such as
imodium, lomotil can be used if having diarrhea. He feels symptoms improving and would like to hold off on enemas. Will defer to GI.
- He follows with Dr. rainey at [facility] who can continue to monitor his symptoms and recommend interventions if needed.
# Prostate cancer
- initially underwent prostatectomy 15 years ago.
- recent recurrence with oligo-metastatic dz.
- s/p XRT to pelvis and rib lesion.
- defer to primary oncology team for ongoing management.
Subjective/Objective
Chief Complaint
radiation proctitis
Subjective
pt denies bleeding over last 24 hours. He has not had bowel movements since receiving metamucil, some abdominal cramping noted. Hgb stable.
Vital Signs:
Vital Signs
Temp Pulse Resp BP Pulse Ox
98.8 F 98 16 159/93 99
05/08/24 07:15 05/08/24 08:27 05/08/24 07:15 05/08/24 08:27 05/08/24 07:15
Lab Results:
Laboratory Data
WBC 11.6 10^3/uL (4.8-10.8) H 05/06/24 23:18
Hgb 11.3 g/dL (13.0-18.0) L 05/07/24 18:54
Plt Count 412 10^3/uL (130-400) H 05/06/24 23:18
eGFR > 60.00 05/07/24 06:00
Physical Exam
HEENT: No Jaundice
Cardiology: Normal Sinus Rhythm
GI: Soft and Normal Bowel Sounds; No Distended
Extremities: No Edema
Neuro: Non Focal
Review of Systems
Review of Systems
Constitutional: Reports Fatigue; Denies Fever
Gastrointestinal: Denies Nausea/Vomiting or Diarrhea
--- NOTE | 2024-05-08 11:42 | W.DCSUMMARY ---
Discharge Summary
Discharge Data
Date of Admission: 05/07/24
Date of Discharge: 05/08/24
-
Pending Results: No
Hospital Course
Primary care physician : Jaycee Middleton
Principal Discharge diagnosis : Acute rectal bleeding due to severe radiation-induced proctocolitis
Chronic Discharge diagnosis : History of prostate cancer, essential hypertension, gastroesophageal reflux disease
Hospital Course : Patient was a 79-year-old male with a history of prostate cancer status post prostatectomy who just completed radiation therapy through [facility]. Patient developed rectal bleeding on the day of admission. Patient
had a CT scan of the abdomen pelvis in the emergency department which showed chronic wall thickening of the descending colon through the rectum consistent with colitis. Patient was recently hospitalized from 04/20-2023 for the same. Patient was
admitted.
Problem #1: Acute rectal bleeding due to severe radiation-induced proctocolitis. Patient was admitted and seen in consultation by GI and oncology. Both felt that this was due to acute radiation proctitis. There was no plan for any direct imaging
with a flex sig or colonoscopy. Patient does have anemia, although this is more likely due to chronic disease than due to acute blood loss as his hemoglobin did not change drastically while he was here at the hospital. He did not require any blood
transfusions. It is recommended patient uses hydrocortisone cream and fiber products to keep bowels regular.
Problem #2: All other medical issues. These include History of prostate cancer, essential hypertension, gastroesophageal reflux disease. These medical issues were stable during his hospitalization. Medications were continued as able.
Patient is stable for discharge home at this time. If there are any questions regarding this dictation or his hospital stay, please not hesitate to call. Our office number is [phone].
Time for discharge 33 minutes.
Discharge Plan
-
Patient Disposition: Home (Routine Discharge)
Discharge Diagnosis/Procedures: Acute rectal bleeding likely secondary to severe radiation-induced proctocolitis, history of prostate cancer, essential hypertension, gastroesophageal reflux disease
Condition: Good
Diet: As tolerated
Activity: As tolerated
Driving Restrictions: As prior to admission
Bathing Restrictions: None
Referrals:
Jaycee Middleton MD [Family Provider] - in less than 1 week
Pedro Luis Guerrero MD [Active] -
(as instructed
)
Prescriptions:
New
hydrocortisone 2.5 % Cream
1 applic topical BID Qty: 30 0RF
Metamucil Fiber Singles 3.4 gram Powder In Packet
1 packet PO DAILY Qty: 0 0RF
Continued
metoprolol succinate [Toprol XL] 50 mg Tablet Extended Release 24 Hr
50 mg PO DAILY
brinzolamide 1 % Drops,Suspension
1 drp BOTH EYES TID
aspirin 81 mg Tablet,Delayed Release (Dr/Ec)
81 mg PO DAILY
timolol maleate 0.5 % Drops
1 drp BOTH EYES BID
omeprazole 20 mg Tablet,Delayed Release (Dr/Ec)
20 mg PO DAILY
PreserVision AREDS 2,148 mcg-113 mg-45 mg-17.4mg Tablet
1 tab PO DAILY
Lumigan 0.01 % Drops
1 drp BOTH EYES HS
simethicone 80 mg Tablet,Chewable
80 mg PO QIDPRN PRN (Reason: gas) Qty: 30 0RF
acetaminophen [Tylenol Extra Strength] 500 mg Tablet
1,000 mg PO Q6HPRN PRN (Reason: mild pain/ fever>100.5F) Qty: 100 0RF
Discharge Orders:
Discharge Patient (As Directed); Ordered 05/08/24
Ordered By: Joann Link
Discharge Date and Time
Print Language: TURKMEN
--- NOTE | 2024-05-08 13:03 | CM ---
CM met with pt at bedside to complete IMM. Pt reports being febrile, not feeling well and that he will no longer be discharged today.
Discharge dispo remains home no needs once medically stable.
[2024-05-08 15:57] VITALS: BP 154/93
[2024-05-08] MEDS: TYLENOL 650 MG PO (16:53)
[2024-05-08 19:56] VITALS: BP 166/79
[2024-05-08] MEDS: HYDROCORTISONE 2.5% CREAM TOPICAL (20:33)
[2024-05-08] MEDS: XALATAN OPHTHALMIC SOLUTION 1 DROP BOTH EYES (20:35)
[2024-05-08 23:12] VITALS: BP 146/86
[2024-05-09] VITALS (8 sets, daily range): BP systolic 129–162; BP diastolic 70–89
[2024-05-09] MEDS: PROTONIX IV 40 MG IV (08:37)
[2024-05-09] MEDS: METAMUCIL, KONSYL 1 PACKET PO (08:37)
[2024-05-09] MEDS: OCUVITE SOFTGEL 1 CAP PO (08:37)
[2024-05-09] MEDS: TOPROL XL 50 MG PO (08:37)
[2024-05-09] MEDS: NSS (PRESERVATIVE FREE) 10 ML IV (08:37)
[2024-05-09] MEDS: HYDROCORTISONE 2.5% CREAM 1 APPLIC TOPICAL (08:41)
[2024-05-09] MEDS: TIMOPTIC 0.5% OPHTHALMIC SOLUTION 1 DROP BOTH EYES ×2 (08:43→21:00)
[2024-05-09] MEDS: AZOPT 1% OPHTHALMIC SUSPENSION 1 DROP BOTH EYES ×3 (08:43→21:00)
--- NOTE | 2024-05-09 09:50 | W.PN.HOSP.TC ---
Addendum entered and electronically signed by Milton Pham MD 05/09/24 17:46:
I saw and evaluated the patient. I reviewed the resident�s note and agree with findings and plan as documented in the resident�s note.
Total time spent on today's encounter was 52 minutes which included time spent in counseling the patient regarding diagnosis and treatment plan as listed above, goals of care, and symptom management. Case was discussed with nursing staff . All
labs and imaging personally reviewed by me. Remainder the time spent in detailed review of previous records, lab data, imaging, and other medical provider documentation.
Original Note:
Today's Communication/Plan
-
Patient's hemoglobin appears to be stable when compared to prior admissions and based on current blood work. Most recent CT of the abdomen showed proctocolitis which may have seeded infection. Will give Zosyn and continue to monitor. discharge
postponed until patient is at baseline.
Assessment / Plan
Assessment / Plan
- Acute Rectal Bleed Suspect Secondary to Severe Radiation-Induced Proctocolitis: Stable and Monitoring
Patient was recently seen at [facility] on 04/20 to 04/23 for the same cause.
Oncology consult - Oncology consult agree with GIs assessment and believe that the acute proctitis is currently self-limiting. They believe that treatments such as mesalamine, steroid enemas may be considered if there is no improvement. Sodium
butyrate could be used to the patient was having tenesmus, urgency, antimotility agents such as Imodium, I [place] until can be used at the patient was having diarrhea as well. Since patient is having improved symptoms, they would like to hold off on
enemas for the time being. They recommended following up with oncology in the outpatient setting.
Gastroenterology consult -they met with the patient and counseled the patient in regards to acute radiation proctitis. They shared with the patient that it may take some time for the patient's acute radiation proctitis to resolve. They have
recommended the use of hydrocortisone cream as needed for hemorrhoids. And the patient was appropriate for discharge at the present time by their assessment. Recommended outpatient follow-up if possible.
- History of prostate cancer:
With biochemical recurrence s/p XRT to prostate bed at [facility]- s/p prostatectomy
- Essential Hypertension:
Continue metoprolol with hold parameters
- GERD:
IV Protonix daily
- Raised temperature with chills:
Most recent CT of the abdomen showed proctocolitis which may have seeded infection.
Blood culture sent
Will give Zosyn and continue to monitor. discharge postponed until fever resolved
Tylenol added
CODE STATUS: Full code
Anticipated Discharge: Today
Subjective/Interval History
-
Date of Service: May 09, 2024
Met with patient at the bedside. He states that he is doing better and has no negative symptoms to report. He was told that he had a high temperature last evening but attributes that to 'hormone therapy' that he is receiving from his oncologist at
[place]. When asked what specific hormones he is taking he is unable to articulate. Patient said he would ask his to bring his medical records from his other hospital stay. -Patient was later informed that he was taking leuprolide for his
prostate cancer. He also continued to have fevers and chills which worried him.
Objective Data
-
Vital Signs:
Vital Signs
Temp Pulse Resp BP Pulse Ox
100.3 F 92 18 156/88 97
05/09/24 07:20 05/09/24 08:37 05/09/24 07:20 05/09/24 08:37 05/09/24 07:20
I&O
05/08/24 05/09/24 05/10/24
06:59 06:59 06:59
Intake Total 2240 / 2240 1240 / 1240
Output Total 100 / 100
Balance 2140 / 2140 1240 / 1240
Review of Systems
-
History Source: Patient
Constitutional: Reports No Symptoms
EENT: Reports No Symptoms Reported
Respiratory: Reports No Symptoms
Cardiac: Reports No Symptoms
Abdomen/GI: Reports No Symptoms
Breast: Reports No Symptoms
Genitourinary: Reports No Symptoms
Musculoskeletal: Reports No Symptoms
Skin: Reports No Symptoms
Neuro: Reports No Symptoms
Endocrine: Reports No Symptoms
Hematologic / Lymphatic: Reports No Symptoms
Allergy / Immunology: Reports No Symptoms
Physical Exam
-
General: Well Developed, Well Nourished, No Apparent Distress and Comfortable
HEENT: Normocephalic and Atraumatic
Respiratory: Clear to Auscultation
Cardiac: Regular Rhythm and S1/S2
Breast: Deferred by me
GI: Soft, Nontender, Nondistended and Normal Bowel Sounds
Rectal: Deferred by Provider
Genito-urinary: Deferred by me
Musculoskeletal: No Clubbing, No Cyanosis and No Edema
Skin: Warm and Dry
Neuro: Nonfocal/Grossly Intact
Psych: Calm
--- NOTE | 2024-05-09 11:20 | W.PN.GI.CBS2 ---
Today's Communication / Plan
-
Continue metamucil OP
Available with any questions after d/c
Likely resolving acute XRT proctitis
Fever eval per primary team
Will sign off
Assessment / Plan
-
The patient is a 79-year-old male with a past medical history significant for prostate cancer status post prostatectomy 15 years ago, with recent radiation therapy to the prostate bed with [facility], GERD, hypertension,
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 His hemoglobin has been stable at 12.8-->12.3. He
reports that the rectal bleeding is slowing down with his last episode 3 hours ago. His stool studies were present with C. difficile and stool culture which are pending. He denies any overt signs of infection such as fevers or chills, but does get
sweats which she attributes to his hormone therapy. Mild leukocytosis on admission with a WBC of 11.6. BUN is elevated at 32, possibly from dehydration although he had been taking Aleve as well twice daily for the past 3 weeks. He is starting on
a clear liquid diet this morning. His radiation therapy has been on hold since his last hospitalization in early April (per pt was scheduled for 34 rounds total).
Problem list:
-Recurrent prostate cancer with recent radiation therapy April 14April 20 followed at [facility], initial dx 15 years ago s/p prostatectomy
-rectal bleeding
-CT imaging showing chronic proctocolitis (per night read)
-mild normocytic anemia
-leukocytosis
-recent admission for proctocolitis
-elevated BUN
-HTN
-chronic GERD
Subjective
Subjective
Date of Service: May 09, 2024
BMs have been better on metamucil. D/C was cancelled yesterday due to low grade fever. Denies abd pain
Objective
Data Reviewed
Laboratory Data:
Laboratory Results
05/07/24 18:54
05/07/24 06:00
Laboratory Results
Total Bilirubin 0.9 mg/dl (0.2-1.3) 05/07/24 06:00
AST 21 U/L (17-59) 05/07/24 06:00
ALT 26 U/L (0-50) 05/07/24 06:00
Alkaline Phosphatase 91 U/L (38-126) 05/07/24 06:00
Vital Signs and I&O:
Vital Signs
Temp Pulse Resp BP Pulse Ox
100.3 F 92 18 156/88 97
05/09/24 07:20 05/09/24 08:37 05/09/24 07:20 05/09/24 08:37 05/09/24 07:20
I&O
05/08/24 05/09/24 05/10/24
06:59 06:59 06:59
Intake Total 2240 / 2240 1240 / 1240
Output Total 100 / 100
Balance 2140 / 2140 1240 / 1240
Physical Exam
Physical Exam
GI: Soft, Non Distended and Non Tender
--- NOTE | 2024-05-09 16:09 | CM ---
Discharge Plan of Care: Home with no needs.
[2024-05-09] MEDS: ZOFRAN 4 MG IV (16:14)
[2024-05-09] MEDS: ZOSYN 50 IV (19:41)
[2024-05-09] MEDS: HYDROCORTISONE 2.5% CREAM TOPICAL (20:07)
[2024-05-09] MEDS: XALATAN OPHTHALMIC SOLUTION 1 DROP BOTH EYES (21:00)
[2024-05-10] MEDS: ZOSYN 50 IV ×5 (00:30→23:20)
[2024-05-10 03:26] VITALS: BP 141/80
[2024-05-10 07:25] VITALS: BP 134/84
[2024-05-10 07:47] LABS: Hematocrit 31.4 % (39.0-52.0); Hemoglobin 11.4 g/dL (13.0-18.0); Mean Corp Hgb Conc. 36.3 g/dL (33.0-37.0); Mean Corpuscular Hgb 31.4 pg (27.0-31.0); Mean Corpuscular Volume 86.5 fL (80.0-94.0); Mean Platelet Volume 8.8 fL (7.4-10.4); Platelet Count 303 10^3/uL (130-400); Red Blood Cell Count 3.63 10^6/uL (4.70-6.10); Red Cell Dist. Width 12.6 % (11.5-14.5); White Blood Cell Count 7.2 10^3/uL (4.8-10.8)
[2024-05-10 08:11] LABS: ALT (SGPT) 22 U/L (0-50); AST (SGOT) 18 U/L (17-59); Albumin 2.7 g/dl (3.5-5.0); Alkaline Phosphatase 86 U/L (38-126); Blood Urea Nitrogen 14 mg/dl (9-20); Calcium 8.4 mg/dl (8.4-10.2); Carbon Dioxide 24 mmol/L (22-30); Chloride 97 mmol/L (98-107); Estimated Creatinine Clearance 77 ml/min; Glucose 126 mg/dl (70-99); Potassium 3.2 mmol/L (3.5-5.1); Sodium 128 mmol/L (135-145); Total Bilirubin 1.3 mg/dl (0.2-1.3); Total Protein 5.3 g/dl (6.3-8.2); eGFR > 60.00
--- NOTE | 2024-05-10 08:35 | W.PN.HOSP.TC ---
Addendum entered and electronically signed by Milton Pham MD 05/10/24 15:01:
I saw and evaluated the patient. I reviewed the resident�s note and agree with findings and plan as documented in the resident�s note.
Patient feeling improved. Resolved nausea. Tolerating diet. No further fever or chills.
Abdomen soft but he has left lower quadrant area tenderness but no rebound guarding rigidity. He feels constipated. Last bowel movement 3 days ago.
Continue with antibiotics of possible colitis causing febrile illness and GI symptoms.
Started on laxative.
If continued improvement will switch to oral Augmentin and consider discharge tomorrow.
Original Note:
Today's Communication/Plan
-
Patient is not having fevers anymore and appears to be near or approaching his baseline. We will move forward with tentative discharge planning if patient agreeable. If blood cultures do not result prior to discharge we will recommend that the
patient check his lab results and follow-up with his outpatient healthcare provider. Gastroenterology recommends continuing Metamucil in the outpatient setting.
Assessment / Plan
Assessment / Plan
- Acute Rectal Bleed Suspect Secondary to Severe Radiation-Induced Proctocolitis: Stable and Monitoring
Patient was recently seen at [facility] on 04/20 to 04/23 for the same cause.
Oncology consult - Oncology consult agree with GIs assessment and believe that the acute proctitis is currently self-limiting. They believe that treatments such as mesalamine, steroid enemas may be considered if there is no improvement. Sodium
butyrate could be used to the patient was having tenesmus, urgency, antimotility agents such as Imodium, and lomotil can be used at the patient was having diarrhea as well. Since patient is having improved symptoms, they would like to hold off on
enemas for the time being. They recommended following up with oncology in the outpatient setting.
Gastroenterology consult -they met with the patient and counseled the patient in regards to acute radiation proctitis. They shared with the patient that it may take some time for the patient's acute radiation proctitis to resolve. They have
recommended the use of hydrocortisone cream as needed for hemorrhoids. And the patient was appropriate for discharge at the present time by their assessment. Recommended outpatient follow-up if possible. -On second consult they recommended that
the patient continue Metamucil in the outpatient setting and that the patient is likely resolving from acute episode of postradiation proctitis.
- History of prostate cancer:
With biochemical recurrence s/p XRT to prostate bed at [facility]- s/p prostatectomy
- Essential Hypertension:
Continue metoprolol with hold parameters
- GERD:
IV Protonix daily
- Raised temperature with chills:
Most recent CT of the abdomen showed proctocolitis which may have seeded infection.
Blood culture sent -results pending
Will give Zosyn and continue to monitor. discharge postponed until fever resolved
Tylenol added
CODE STATUS: Full code
Anticipated Discharge: Within 24 hours
Subjective/Interval History
-
Date of Service: May 10, 2024
Met with patient at the bedside. Overall, he feels better today than he did yesterday and states that he has not had any fevers overnight. He is aware that he is receiving antibiotics and inquired whether he has an infection or not. Explained to
patient that blood cultures were sent and we are treating him prophylactically. Patient inquired about a previous CT scan conducted on a prior emergency department visit and stated that there was a 'bloody mass' seen on that CT as said by his
outpatient provider. Prior CTs conducted [facility] were checked and no corroborating data was found. Explained that there was no correlating CT findings to the patient.
Objective Data
-
Labs:
Laboratory Results
05/10/24
07:38
WBC 7.2
Hgb 11.4 L
Hct 31.4 L
Plt Count 303 D
Sodium 128 L
Potassium 3.2 L
Chloride 97 L
Carbon Dioxide 24
BUN 14
Creatinine 0.8
Glucose 126 H
Calcium 8.4
Total Bilirubin 1.3
AST 18
ALT 22
Alkaline Phosphatase 86
Vital Signs:
Vital Signs
Temp Pulse Resp BP Pulse Ox
98.0 F 78 16 134/84 98
05/10/24 07:25 05/10/24 07:25 05/10/24 07:25 05/10/24 07:25 05/10/24 07:25
I&O
05/09/24 05/10/24 05/11/24
06:59 06:59 06:59
Intake Total 1240 / 1240 1090 / 1090
Balance 1240 / 1240 1090 / 1090
Review of Systems
-
History Source: Patient
Constitutional: Reports No Symptoms
EENT: Reports No Symptoms Reported
Respiratory: Reports No Symptoms
Cardiac: Reports No Symptoms
Abdomen/GI: Reports No Symptoms
Breast: Reports No Symptoms
Genitourinary: Reports No Symptoms
Musculoskeletal: Reports No Symptoms
Skin: Reports No Symptoms
Neuro: Reports No Symptoms
Endocrine: Reports No Symptoms
Hematologic / Lymphatic: Reports No Symptoms
Allergy / Immunology: Reports No Symptoms
Physical Exam
-
General: Well Developed, Well Nourished, No Apparent Distress and Comfortable
HEENT: Normocephalic, Atraumatic and Moist Mucous Membranes
Respiratory: Clear to Auscultation
Cardiac: Regular Rhythm and S1/S2
Breast: Deferred by me
GI: Soft, Nontender, Nondistended and Normal Bowel Sounds
Rectal: Deferred by Provider
Genito-urinary: Deferred by me
Musculoskeletal: No Clubbing, No Cyanosis and No Edema
Neuro: Nonfocal/Grossly Intact
[2024-05-10] MEDS: TOPROL XL 50 MG PO (08:40)
[2024-05-10] MEDS: METAMUCIL, KONSYL 1 PACKET PO (08:40)
[2024-05-10] MEDS: HYDROCORTISONE 2.5% CREAM TOPICAL ×2 (08:41→21:09)
[2024-05-10] MEDS: OCUVITE SOFTGEL 1 CAP PO (08:41)
[2024-05-10] MEDS: AZOPT 1% OPHTHALMIC SUSPENSION 1 DROP BOTH EYES ×3 (08:42→22:18)
[2024-05-10] MEDS: TIMOPTIC 0.5% OPHTHALMIC SOLUTION 1 DROP BOTH EYES ×2 (08:43→20:33)
[2024-05-10] MEDS: PROTONIX 40 MG PO (08:51)
[2024-05-10] MEDS: NSS (PRESERVATIVE FREE) IV (08:56)
[2024-05-10] MEDS: PROTONIX IV IV (08:56)
[2024-05-10] MEDS: KCL 40 MEQ PO (10:05)
[2024-05-10 10:34] LABS: Magnesium 1.6 mg/dl (1.6-2.3)
[2024-05-10 14:49] LABS: ALT (SGPT) 22 U/L (0-50); AST (SGOT) 19 U/L (17-59); Albumin 2.8 g/dl (3.5-5.0); Alkaline Phosphatase 90 U/L (38-126); Blood Urea Nitrogen 16 mg/dl (9-20); Calcium 8.8 mg/dl (8.4-10.2); Carbon Dioxide 27 mmol/L (22-30); Chloride 96 mmol/L (98-107); Estimated Creatinine Clearance 62 ml/min; Glucose 180 mg/dl (70-99); Potassium 4.2 mmol/L (3.5-5.1); Sodium 129 mmol/L (135-145); Total Protein 5.3 g/dl (6.3-8.2); eGFR > 60.00
[2024-05-10] MEDS: MIRALAX 17 GRAMS PO (15:34)
[2024-05-10 15:39] VITALS: BP 128/71
[2024-05-10] MEDS: XALATAN OPHTHALMIC SOLUTION 1 DROP BOTH EYES (22:18)
[2024-05-10 23:09] VITALS: BP 153/81
[2024-05-10] MEDS: FLUSH (NSS) 2 FLUSH IV (23:20)
[2024-05-11] MEDS: ZOSYN 50 IV ×2 (05:26→11:36)
[2024-05-11] MEDS: FLUSH (NSS) 2 FLUSH IV (05:26)
[2024-05-11 07:20] VITALS: BP 130/84
[2024-05-11 08:28] LABS: Hematocrit 32.1 % (39.0-52.0); Hemoglobin 11.4 g/dL (13.0-18.0); Mean Corp Hgb Conc. 35.5 g/dL (33.0-37.0); Mean Corpuscular Hgb 31.3 pg (27.0-31.0); Mean Corpuscular Volume 88.2 fL (80.0-94.0); Mean Platelet Volume 9.2 fL (7.4-10.4); Platelet Count 298 10^3/uL (130-400); Red Blood Cell Count 3.64 10^6/uL (4.70-6.10); Red Cell Dist. Width 12.4 % (11.5-14.5); White Blood Cell Count 6.8 10^3/uL (4.8-10.8)
[2024-05-11] MEDS: HYDROCORTISONE 2.5% CREAM TOPICAL ×2 (08:45→20:04)
[2024-05-11] MEDS: METAMUCIL, KONSYL 1 PACKET PO (08:46)
[2024-05-11] MEDS: OCUVITE SOFTGEL 1 CAP PO (08:46)
[2024-05-11] MEDS: TOPROL XL 50 MG PO (08:46)
[2024-05-11] MEDS: PROTONIX 40 MG PO (08:46)
[2024-05-11] MEDS: MIRALAX 17 GRAMS PO (08:46)
[2024-05-11] MEDS: AZOPT 1% OPHTHALMIC SUSPENSION 1 DROP BOTH EYES ×3 (08:47→21:27)
[2024-05-11] MEDS: TIMOPTIC 0.5% OPHTHALMIC SOLUTION 1 DROP BOTH EYES ×2 (08:48→20:04)
[2024-05-11 08:53] LABS: ALT (SGPT) 23 U/L (0-50); AST (SGOT) 18 U/L (17-59); Albumin 2.7 g/dl (3.5-5.0); Alkaline Phosphatase 94 U/L (38-126); Blood Urea Nitrogen 14 mg/dl (9-20); Calcium 8.7 mg/dl (8.4-10.2); Carbon Dioxide 26 mmol/L (22-30); Chloride 96 mmol/L (98-107); Estimated Creatinine Clearance 77 ml/min; Glucose 134 mg/dl (70-99); Potassium 3.6 mmol/L (3.5-5.1); Sodium 129 mmol/L (135-145); Total Bilirubin 1.1 mg/dl (0.2-1.3); Total Protein 5.3 g/dl (6.3-8.2); eGFR > 60.00
--- NOTE | 2024-05-11 10:28 | CM ---
Patient seen at bedside. IMM completed and signed form placed on chart. Patient states that his will pick him up pending physician return and discharge. CM will continue to follow for discharge planning needs.
Plan;home with no needs anticipated.
[2024-05-11 13:05] LABS: Osmolality Urine 607 mOsm/kg (300-900)
--- NOTE | 2024-05-11 13:08 | W.PN.HOSP.TC ---
Today's Communication/Plan
-
Patient's fever appears to be resolving. Completed Zosyn treatment and changed to amoxicillin 875 mg/clavulanate 125 mg twice daily for 7 days. Patient's most recent urine analysis showed a urine osmolality of 607 and a urine sodium of 88 which
are within normal limits. Blood cultures resulted with no significant bacterial growth. Consideration of discharge planning moving forward as the patient is approaching baseline.
Assessment / Plan
Assessment / Plan
- Acute Rectal Bleed Suspect Secondary to Severe Radiation-Induced Proctocolitis: Stable and Monitoring
Patient was recently seen at [facility] on 04/20 to 04/23 for the same cause.
Oncology consult - Oncology consult agree with GIs assessment and believe that the acute proctitis is currently self-limiting. They believe that treatments such as mesalamine, steroid enemas may be considered if there is no improvement. Sodium
butyrate could be used to the patient was having tenesmus, urgency, antimotility agents such as Imodium, and lomotil can be used at the patient was having diarrhea as well. Since patient is having improved symptoms, they would like to hold off on
enemas for the time being. They recommended following up with oncology in the outpatient setting.
Gastroenterology consult -they met with the patient and counseled the patient in regards to acute radiation proctitis. They shared with the patient that it may take some time for the patient's acute radiation proctitis to resolve. They have
recommended the use of hydrocortisone cream as needed for hemorrhoids. And the patient was appropriate for discharge at the present time by their assessment. Recommended outpatient follow-up if possible. -On second consult they recommended that
the patient continue Metamucil in the outpatient setting and that the patient is likely resolving from acute episode of postradiation proctitis.
- History of prostate cancer:
With biochemical recurrence s/p XRT to prostate bed at [facility]- s/p prostatectomy
- Essential Hypertension:
Continue metoprolol with hold parameters
- GERD:
IV Protonix daily
- Raised temperature with chills: Resolved
Most recent CT of the abdomen showed proctocolitis which may have seeded infection.
Blood culture sent -no growth in 24 hours
Will give Zosyn and continue to monitor. discharge postponed until fever resolved
Tylenol added
- Asymptomatic Hyponatremia: Monitoring
Patient's sodium level has been persistently low at 128-129
Will check urine analysis for urine osmolality and sodium levels.
Suspicion of hyponatremia being secondary to excessive ADH secretion due to nausea symptoms. Patient has been advised to fluid restrict and follow with basic metabolic panel in the outpatient setting.
CODE STATUS: Full code
Anticipated Discharge: Within 24 hours
Subjective/Interval History
-
Date of Service: May 11, 2024
Met with patient at the bedside. Patient states that he feels better than he did previous days. He had a small bowel movement earlier in the day that did not any blood whatsoever. He did not have any fever symptoms overnight and his appetite is
normal. Patient hopes to go home in the near future.
Objective Data
-
Labs:
Laboratory Results
05/11/24
08:03
WBC 6.8
Hgb 11.4 L
Hct 32.1 L
Plt Count 298
Sodium 129 L
Potassium 3.6
Chloride 96 L
Carbon Dioxide 26
BUN 14
Creatinine 0.8
Glucose 134 H
Calcium 8.7
Total Bilirubin 1.1
AST 18
ALT 23
Alkaline Phosphatase 94
Vital Signs:
Vital Signs
Temp Pulse Resp BP Pulse Ox
97.6 F 85 16 153/81 98
05/11/24 07:20 05/11/24 08:46 05/11/24 07:20 05/11/24 08:46 05/11/24 07:20
I&O
05/10/24 05/11/24 05/12/24
06:59 06:59 06:59
Intake Total 1090 / 1090 1759
Balance 1090 / 1090 1759 / 1759
Review of Systems
-
History Source: Patient
Constitutional: Reports No Symptoms
EENT: Reports No Symptoms Reported
Respiratory: Reports No Symptoms
Cardiac: Reports No Symptoms
Abdomen/GI: Reports No Symptoms
Breast: Reports No Symptoms
Musculoskeletal: Reports No Symptoms
Skin: Reports No Symptoms
Neuro: Reports No Symptoms
Endocrine: Reports No Symptoms
Hematologic / Lymphatic: Reports No Symptoms
Allergy / Immunology: Reports No Symptoms
Physical Exam
-
General: Well Developed, Well Nourished, No Apparent Distress and Comfortable
HEENT: Normocephalic, Atraumatic and Moist Mucous Membranes
Respiratory: Clear to Auscultation and Clear to Percussion
Cardiac: Regular Rhythm and S1/S2
Breast: Deferred by me
GI: Soft, Nontender, Nondistended and Normal Bowel Sounds
Rectal: Deferred by Provider
Genito-urinary: Deferred by me
Musculoskeletal: No Clubbing, No Cyanosis and No Edema
Neuro: Nonfocal/Grossly Intact
[2024-05-11 13:12] LABS: Urine Sodium 88 mmol/L (30-90)
--- NOTE | 2024-05-11 13:49 | W.PN.UPDATE ---
Update Note
Progress Note Update
I saw and evaluated the patient. I reviewed the resident�s note and agree with findings and plan as documented in the resident�s note.
Patient today without any GI symptoms. Resolved nausea. Left lower quadrant abdominal pain is better. Afebrile and hemodynamically stable. No left lower quadrant abdominal tenderness today. White count normalized. Suspect the fever is from
proctocolitis. His CT chest on this admission showed persistent unchanged proctocolitis without any intramural abscess, free air or focal fluid collection but then he had upper GI symptoms which are all improving with antibiotics. I would change
to oral antibiotics with resolution of abdominal pain and tenderness in good oral intake. Will give amoxicillin for 7 more days. Patient without any rectal bleeding now. He has a diagnosis of radiation proctitis.
In fact is constipated with some movement of bowels with MiraLAX. Continue with laxative regimen at home.
See GI input during this admission.
Hyponatremia noted which I suspect probably secondary to excessive ADH from his nausea symptoms. Moderately low at 129. Urine osmolality from 607 and urine sodium of 88 noted. For now I will advise him fluid restriction and follow with BMP as OP .
DW daughter at bedside
Total time of dc 35 mni
[2024-05-11 15:09] LABS: Cortisol, Random 28.3 ug/dl
--- NOTE | 2024-05-11 15:32 | W.DS.TRANS ---
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
-
Discharge Instructions:
Discharge Diagnosis/Procedures Acute rectal bleeding likely secondary to severe
radiation-induced proctocolitis, possible acute
superimposed bacterial colitis , Hyponatremia
euvolemic; history of prostate cancer, essential
hypertension, gastroesophageal reflux disease
Diet As tolerated,Restrict fluids to 48 oz
Activity As tolerated
Driving Restrictions As prior to admission
Bathing Restrictions None
Blood Work Basic Metabolic Panel at the end of the week and
follow up bloodwork with Primary Care Provider
Instructions:
Stand-Alone Forms:
Changes to Home Medications: Yes
Discharge Medications:
DC Medications w/original date entered in [employer]
aspirin 81 mg tablet,delayed release 81 mg PO DAILY Blood Clot Prevention/Tx 04/20/24
bimatoprost 0.01 % eye drops (Lumigan) 1 drp BOTH EYES HS Eye Condition 04/20/24
brinzolamide 1 % eye drops,suspension 1 drp BOTH EYES TID Eye Condition 04/20/24
metoprolol succinate 50 mg tablet,extended release 24 hr (Toprol XL) 50 mg PO DAILY Blood Pressure 04/20/24
omeprazole 20 mg tablet,delayed release 20 mg PO DAILY Gastrointestinal Issue 04/20/24
timolol maleate 0.5 % eye drops 1 drp BOTH EYES BID Eye Condition 04/20/24
vitamins A,C,Z-ooeo-lpifua 2,148 mcg-113 mg-45 mg-17.4 mg tablet (PreserVision AREDS) 1 tab PO DAILY Supplement 04/20/24
acetaminophen 500 mg tablet (Tylenol Extra Strength) 1,000 mg (2 x 500 mg) PO Q6HPRN PRN mild pain/ fever>100.5F #100 tabs 04/23/24
simethicone 80 mg chewable tablet 80 mg PO QIDPRN PRN gas #30 tabs 04/23/24
Home Medication Changes
Added medications:
psyllium husk (aspartame) 3.4 gram oral powder packet (Metamucil Fiber Singles) 1 packet PO DAILY #0 ea 05/08/24
amoxicillin 875 mg-potassium clavulanate 125 mg tablet 1 tab PO BID #14 tabs 05/11/24
polyethylene glycol 3350 17 gram oral powder packet (HealthyLax) 17 g PO DAILY #14 ea 05/11/24
Pending Results: No
--- NOTE | 2024-05-11 15:41 | W.DCSUMMARY ---
Discharge Summary
Discharge Data
Date of Admission: 05/07/24
Date of Discharge: 05/11/24
-
Pending Results: No
Hospital Course
Patient is a 79-year-old male with a history of prostate cancer s/p prostatectomy on recent radiation therapy who was seen in the emergency department for evaluation of rectal bleeding all day long prior to his presentation. He was recently
hospitalized for proctocolitis on 04/20 to 04/23 with similar concerns of rectal bleeding. His hemoglobin has been stable at around 12.8-12.3 he reported that the rectal bleeding was slowing down with his last episode 3 hours prior to his presentation
to the emergency department. He denied any overt signs of infection such as fevers or chills but stated that he did get sweats which she attributed to his hormone therapy. There is mild leukocytosis on admission with a white blood cell count of
11.6. His BUN was elevated at 32 possibly from dehydration although he stated he had been taking Aleve twice daily for the past 3 weeks. His radiation therapy had been on hold since his last hospitalization in early April. A CT of the abdomen
conducted in the emergency department showed persistent unchanged proctocolitis with no intramural abscess free air or local fluid collection. The patient was admitted to [facility] for acute radiation proctitis.
Throughout his time at [facility] the patient was followed by gastroenterology, oncology and the hospitalist team. Gastroenterology recommended starting a 2.5% HC cream to treat hemorrhoids, continuing fiber which could help with bulking,
stool studies, and supportive treatment. Patient was given education in regards to radiation proctitis and that it would likely be self-limiting and possibly resolve slowly on its own. The patient was given supportive management and over the course
of multiple days his bleeding slowly resolved. The patient had a duration of time which he was constipated and had no apparent bowel movements for 2 days but after being given stool softeners he began to have bowel movements without any blood seen.
Patient was slightly anemic although this was most likely due to chronic disease and due to acute blood loss as his hemoglobin did not change drastically while he was here at the hospital. He did not require any blood transfusions. He was slated
to be discharged after the bleeding resolved but unfortunately he had a increased temperature of 102 which prompted suspicion of infection. IV antibiotics were given and the patient's fever slowly resolved. Once the patient's fever resolved and he
was back at baseline he felt ready to go home. We subsequently moved forward with discharge planning.
The patient has reached maximal benefit from this hospital stay and is appropriate for discharge at the present time. Patient has been recommended to continue to take amoxicillin for 7 more days after discharge. He should also use stool softeners
at home including MiraLAX in order to treat his ongoing constipation. 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
Discharge Plan
-
Patient Disposition: Home (Routine Discharge)
Discharge Diagnosis/Procedures: Acute rectal bleeding likely secondary to severe radiation-induced proctocolitis, possible acute superimposed bacterial colitis , Hyponatremia euvolemic; history of prostate cancer, essential hypertension,
gastroesophageal reflux disease
Condition: Good
Diet: As tolerated and Restrict fluids to 48 oz
Activity: As tolerated
Driving Restrictions: As prior to admission
Bathing Restrictions: None
Blood Work: Basic Metabolic Panel at the end of the week and follow up bloodwork with Primary Care Provider
Referrals:
Jaycee Middleton MD [Family Provider] - in less than 1 week
Pedro Luis Guerrero MD [Active] -
(as instructed
)
Prescriptions:
New
Metamucil Fiber Singles 3.4 gram Powder In Packet
1 packet PO DAILY Qty: 0 0RF
amoxicillin-pot clavulanate 875-125 mg tablet
1 tab PO BID Qty: 14 0RF
polyethylene glycol 3350 [HealthyLax] 17 gram Powder In Packet
17 g PO DAILY Qty: 14 0RF
Rx Instructions:
stop once you have a daily bowel movement
Continued
metoprolol succinate [Toprol XL] 50 mg Tablet Extended Release 24 Hr
50 mg PO DAILY
brinzolamide 1 % Drops,Suspension
1 drp BOTH EYES TID
aspirin 81 mg Tablet,Delayed Release (Dr/Ec)
81 mg PO DAILY
timolol maleate 0.5 % Drops
1 drp BOTH EYES BID
omeprazole 20 mg Tablet,Delayed Release (Dr/Ec)
20 mg PO DAILY
PreserVision AREDS 2,148 mcg-113 mg-45 mg-17.4mg Tablet
1 tab PO DAILY
Lumigan 0.01 % Drops
1 drp BOTH EYES HS
simethicone 80 mg Tablet,Chewable
80 mg PO QIDPRN PRN (Reason: gas) Qty: 30 0RF
acetaminophen [Tylenol Extra Strength] 500 mg Tablet
1,000 mg PO Q6HPRN PRN (Reason: mild pain/ fever>100.5F) Qty: 100 0RF
Discharge Date and Time
Print Language: [place]ET[place]ESE
[2024-05-11 15:42] VITALS: BP 145/76
[2024-05-11] MEDS: TYLENOL 650 MG PO (16:26)
[2024-05-11 19:00] VITALS: BP 155/78
[2024-05-11] MEDS: AUGMENTIN 875 MG/125 MG 1 TABLET PO (20:04)
[2024-05-11] MEDS: XALATAN OPHTHALMIC SOLUTION 1 DROP BOTH EYES (21:27)
[2024-05-11 23:21] VITALS: BP 142/78
[2024-05-12 07:35] VITALS: BP 136/81
[2024-05-12] MEDS: MIRALAX PO ×2 (07:59→08:09)
[2024-05-12] MEDS: PROTONIX 40 MG PO (07:59)
[2024-05-12] MEDS: AUGMENTIN 875 MG/125 MG 1 TABLET PO (07:59)
[2024-05-12] MEDS: TOPROL XL 50 MG PO (07:59)
[2024-05-12] MEDS: OCUVITE SOFTGEL 1 CAP PO (07:59)
[2024-05-12] MEDS: METAMUCIL, KONSYL 1 PACKET PO (08:00)
[2024-05-12] MEDS: HYDROCORTISONE 2.5% CREAM TOPICAL (08:00)
[2024-05-12] MEDS: AZOPT 1% OPHTHALMIC SUSPENSION 1 DROP BOTH EYES (08:02)
[2024-05-12] MEDS: TIMOPTIC 0.5% OPHTHALMIC SOLUTION 1 DROP BOTH EYES (08:03)
[2024-05-12 09:32] LABS: Hematocrit 34.4 % (39.0-52.0); Hemoglobin 12.2 g/dL (13.0-18.0); Mean Corp Hgb Conc. 35.5 g/dL (33.0-37.0); Mean Corpuscular Hgb 31.5 pg (27.0-31.0); Mean Corpuscular Volume 88.9 fL (80.0-94.0); Mean Platelet Volume 9.2 fL (7.4-10.4); Platelet Count 352 10^3/uL (130-400); Red Blood Cell Count 3.87 10^6/uL (4.70-6.10); Red Cell Dist. Width 12.6 % (11.5-14.5)
[2024-05-12 10:25] LABS: ALT (SGPT) 25 U/L (0-50); AST (SGOT) 27 U/L (17-59); Albumin 3.1 g/dl (3.5-5.0); Alkaline Phosphatase 107 U/L (38-126); Blood Urea Nitrogen 14 mg/dl (9-20); Calcium 9.3 mg/dl (8.4-10.2); Carbon Dioxide 29 mmol/L (22-30); Chloride 97 mmol/L (98-107); Estimated Creatinine Clearance 77 ml/min; Glucose 116 mg/dl (70-99); Sodium 132 mmol/L (135-145); Total Protein 5.8 g/dl (6.3-8.2); eGFR > 60.00
--- NOTE | 2024-05-12 13:15 | CM ---
Patient seen at bedside, no concerns verbalized. CM will continue to follow for discharge planning needs.
Plan; home with no needs.
--- NOTE | 2024-05-12 13:24 | W.PN.HOSP.TC ---
Today's Communication/Plan
-
DC
Assessment / Plan
Assessment / Plan
- Acute Rectal Bleed Suspect Secondary to Severe Radiation-Induced Proctocolitis: Stable and Monitoring
Patient was recently seen at [facility] on 04/20 to 04/23 for the same cause.
Oncology consult - Oncology consult agree with GIs assessment and believe that the acute proctitis is currently self-limiting. They believe that treatments such as mesalamine, steroid enemas may be considered if there is no improvement. Sodium
butyrate could be used to the patient was having tenesmus, urgency, antimotility agents such as Imodium, and lomotil can be used at the patient was having diarrhea as well. Since patient is having improved symptoms, they would like to hold off on
enemas for the time being. They recommended following up with oncology in the outpatient setting.
Gastroenterology consult -they met with the patient and counseled the patient in regards to acute radiation proctitis. They shared with the patient that it may take some time for the patient's acute radiation proctitis to resolve. They have
recommended the use of hydrocortisone cream as needed for hemorrhoids. And the patient was appropriate for discharge at the present time by their assessment. Recommended outpatient follow-up if possible. -On second consult they recommended that
the patient continue Metamucil in the outpatient setting and that the patient is likely resolving from acute episode of postradiation proctitis.
- Possible acute superimposed infectious protocolitis on top on radition colitis - Patient had associated fever, white count in the left lower quadrant abdominal pain resolved resolved with addition of antibiotics. Currently without rectal
bleeding. I would complete a course of antibiotics for possible infectious proctocolitis and advised him to follow-up with GI.
- History of prostate cancer:
With biochemical recurrence s/p XRT to prostate bed at [facility]- s/p prostatectomy
- Essential Hypertension:
Continue metoprolol
- GERD:
- Asymptomatic Hyponatremia: Euvolemic. Based on urine lites excess ADH present which could be secondary to nausea was experiencing. Improved sodium with fluid restriction which I would continue. Patient advised to keep on fluid restriction and
follow-up with repeat BMP early next week.
CODE STATUS: Full code
More than 30 minutes spent in discharge including
Final examination of the patient
Summarizing hospital stay
Instructions for continuing care to all relevant caregivers
Preparation of discharge records, prescriptions, and referral forms
Total time spent (in minutes): 35
Anticipated Discharge: Today
Subjective/Interval History
-
Date of Service: May 12, 2024
Yesterday's discharge was kept on hold because of low-grade fever of 100.1. He had no further fevers or chills.
remains pain-free in his abdomen. Tolerating diet.
Voicing no specific complaints today.
Objective Data
-
Labs:
Laboratory Results
05/12/24
09:01
WBC 7.0
Hgb 12.2 L
Hct 34.4 L
Plt Count 352
Sodium 132 L
Potassium 4.0
Chloride 97 L
Carbon Dioxide 29
BUN 14
Creatinine 0.8
Glucose 116 H
Calcium 9.3
Total Bilirubin 1.0
AST 27
ALT 25
Alkaline Phosphatase 107
Vital Signs:
Vital Signs
Temp Pulse Resp BP Pulse Ox
98.1 F 77 16 136/81 97
05/12/24 07:35 05/12/24 07:59 05/12/24 07:35 05/12/24 07:59 05/12/24 07:35
I&O
05/11/24 05/12/24 05/13/24
06:59 06:59 06:59
Intake Total 1760 / 1760 960 / 960
Output Total 240 / 240
Balance 1760 / 1760 720 / 720
Review of Systems
-
EENT: Denies Sore Throat
Respiratory: Denies Cough or Trouble Breathing
Cardiac: Denies Chest Pain
Neuro: Denies Dizzy
Physical Exam
-
General: No Apparent Distress
HEENT: Moist Mucous Membranes
Respiratory: Clear to Auscultation
Cardiac: Regular Rhythm and S1/S2
GI: Soft, Nontender (resolved LLQ tenderness), Nondistended and Normal Bowel Sounds
Neuro: AO x 3
Data Reviewed
-
Labs: Labs Reviewed by me
--- NOTE | 2024-05-12 13:36 | PTCARENOTE ---
RN technical coordinator- patient cleared for d/c. Instructions provided. Jeff texted Dr. Pham patient's questions, when to follow with Dr. Guerrero and should he be eating a high fiber diet.
[2024-05-12 13:45] VITALS: BP 131/81
--- NOTE | 2024-05-12 18:28 | W.DCSUMMARY ---
Discharge Summary
Discharge Data
Date of Admission: 05/07/24
Date of Discharge: 05/12/24
-
Pending Results: No
Hospital Course
Patient is a 79-year-old male with a history of prostate cancer s/p prostatectomy on recent radiation therapy who was seen in the emergency department for evaluation of rectal bleeding all day long prior to his presentation. He was recently
hospitalized for proctocolitis on 04/20 to 04/23 with similar concerns of rectal bleeding. His hemoglobin has been stable at around 12.8-12.3 he reported that the rectal bleeding was slowing down with his last episode 3 hours prior to his presentation
to the emergency department. He denied any overt signs of infection such as fevers or chills but stated that he did get sweats which she attributed to his hormone therapy. There is mild leukocytosis on admission with a white blood cell count of
11.6. His BUN was elevated at 32 possibly from dehydration although he stated he had been taking Aleve twice daily for the past 3 weeks. His radiation therapy had been on hold since his last hospitalization in early April. A CT of the abdomen
conducted in the emergency department showed persistent unchanged proctocolitis with no intramural abscess free air or local fluid collection. The patient was admitted to [facility] for acute radiation proctitis.
Throughout his time at [facility] the patient was followed by gastroenterology, oncology and the hospitalist team. Gastroenterology recommended starting a 2.5% HC cream to treat hemorrhoids, continuing fiber which could help with bulking,
stool studies, and supportive treatment. Patient was given education in regards to radiation proctitis and that it would likely be self-limiting and possibly resolve slowly on its own. The patient was given supportive management and over the course
of multiple days his bleeding slowly resolved. The patient had a duration of time which he was constipated and had no apparent bowel movements for 2 days but after being given stool softeners he began to have bowel movements without any blood seen.
Patient was slightly anemic although this was most likely due to chronic disease and due to acute blood loss as his hemoglobin did not change drastically while he was here at the hospital. He did not require any blood transfusions. He was slated
to be discharged after the bleeding resolved but unfortunately he had a increased temperature of 102 which prompted suspicion of infection. IV antibiotics were given and the patient's fever slowly resolved. Once the patient's fever resolved and he
was back at baseline he felt ready to go home. We subsequently moved forward with discharge planning.
The patient has reached maximal benefit from this hospital stay and is appropriate for discharge at the present time. Patient has been recommended to continue to take amoxicillin for 7 more days after discharge. He should also use stool softeners
at home including MiraLAX in order to treat his ongoing constipation. The patient should continue to follow-up with his primary care provider, die baker, and oncologist in the outpatient setting.
Discharge Plan
-
Patient Disposition: Home (Routine Discharge)
Discharge Diagnosis/Procedures: Acute rectal bleeding likely secondary to severe radiation-induced proctocolitis, possible acute superimposed infectious colitis , Hyponatremia euvolemic; history of prostate cancer, essential hypertension,
gastroesophageal reflux disease
Condition: Good
Diet: As tolerated, Low Residue and Restrict fluids to 48 oz
Additional Diets: fluid restriction till next lab work;low residue diet for a week and then start on high fiber diet
Activity: As tolerated
Driving Restrictions: As prior to admission
Bathing Restrictions: None
Blood Work: Basic Metabolic Panel starting of next week and follow up bloodwork with Primary Care Provider
Referrals:
Jaycee Middleton MD [Family Provider] - in less than 1 week
Pedro Luis Guerrero MD [Active] - in two to four weeks
(
)
Prescriptions:
New
Metamucil Fiber Singles 3.4 gram Powder In Packet
1 packet PO DAILY Qty: 0 0RF
amoxicillin-pot clavulanate 875-125 mg tablet
1 tab PO BID Qty: 14 0RF
polyethylene glycol 3350 [HealthyLax] 17 gram Powder In Packet
17 g PO DAILY Qty: 14 0RF
Rx Instructions:
stop once you have a daily bowel movement
Continued
metoprolol succinate [Toprol XL] 50 mg Tablet Extended Release 24 Hr
50 mg PO DAILY
brinzolamide 1 % Drops,Suspension
1 drp BOTH EYES TID
aspirin 81 mg Tablet,Delayed Release (Dr/Ec)
81 mg PO DAILY
timolol maleate 0.5 % Drops
1 drp BOTH EYES BID
omeprazole 20 mg Tablet,Delayed Release (Dr/Ec)
20 mg PO DAILY
PreserVision AREDS 2,148 mcg-113 mg-45 mg-17.4mg Tablet
1 tab PO DAILY
Lumigan 0.01 % Drops
1 drp BOTH EYES HS
simethicone 80 mg Tablet,Chewable
80 mg PO QIDPRN PRN (Reason: gas) Qty: 30 0RF
acetaminophen [Tylenol Extra Strength] 500 mg Tablet
1,000 mg PO Q6HPRN PRN (Reason: mild pain/ fever>100.5F) Qty: 100 0RF
Discharge Orders:
Discharge Patient (As Directed); Ordered 05/12/24
Ordered By: Evens Parker
Discharge Date and Time
Discharge Date/Time: 05/12/24 14:43
Print Language: [place]
== END 2024-05-12 14:43 | disposition home or self-care (01) | DRG 394 ==
LOC: 2 NORTH 02:13
PROVIDERS: Student in an Organized Health Care Education/Training Program; ADMITTING PHYSICIAN Internal Medicine; ATTENDING PHYSICIAN Internal Medicine; CONSULT PHYSICIAN Specialist; EMERGENCY PHYSICIAN Emergency Medicine; FAMILY PHYSICIAN Internal Medicine; OTHER PHYSICIAN Internal Medicine Hematology & Oncology
DX: K62.7 Radiation proctitis (principal); D62 Acute posthemorrhagic anemia; K52.0 Gastroenteritis and colitis due to radiation; K62.5 Hemorrhage of anus and rectum; D63.8 Anemia in other chronic diseases classified elsewhere; K76.0 Fatty (change of) liver, not elsewhere classified; I10 Essential (primary) hypertension; C61 Malignant neoplasm of prostate; I89.8 Other specified noninfective disorders of lymphatic vessels and lymph nodes; Y84.2 Radiological procedure and radiotherapy as the cause of abnormal reaction of the patient, or of later complication, without mention of misadventure at the time of the procedure; E87.6 Hypokalemia; K21.9 Gastro-esophageal reflux disease without esophagitis; D35.02 Benign neoplasm of left adrenal gland; K44.9 Diaphragmatic hernia without obstruction or gangrene; K59.00 Constipation, unspecified; K57.30 Diverticulosis of large intestine without perforation or abscess without bleeding; M43.16 Spondylolisthesis, lumbar region; N20.0 Calculus of kidney; K64.9 Unspecified hemorrhoids; R79.89 Other specified abnormal findings of blood chemistry; Z79.82 Long term (current) use of aspirin; Z79.899 Other long term (current) drug therapy; Z92.3 Personal history of irradiation; Z86.010 Personal history of colon polyps; Z87.19 Personal history of other diseases of the digestive system; Z96.641 Presence of right artificial hip joint; Z90.79 Acquired absence of other genital organ(s)
CPT/HCPCS: 74177; 80053; 82533; 83735; 83935; 84300; 84443; 85014; 85018; 85025; 85027; 86850; 86900; 86901; 87040; 87045; 87046; 87324; 87427; 87449; 96360; 99285; Q9967

== ENCOUNTER → 2024-05-26 12:55 | Outpatient (REF) | payer MEDICARE, OTHER, SELFPAY ==
[2024-05-26 14:14] LABS: % Basophils 0.2 % (0-2); % Eosinophils 1.7 % (0-6); % Immature Granulocytes 0.7 % (0-0.5); % Lymphocytes 12.6 % (20.5-51.1); % Neutrophils 74.8 % (42.2-75.2); Absolute Eosinophils 0.2 10^3/uL (0-0.7); Absolute Immature Granulocytes 0.1 10^3/uL (0-0.05); Absolute Lymphocytes 1.1 10^3/uL (1.2-3.4); Absolute Monocytes 0.9 10^3/uL (0.1-0.6); Absolute Neutrophils 6.6 10^3/uL (1.4-6.5); Hemoglobin 11.4 g/dL (13.0-18.0); Mean Corp Hgb Conc. 33.5 g/dL (33.0-37.0); Mean Corpuscular Hgb 31.7 pg (27.0-31.0); Mean Corpuscular Volume 94.4 fL (80.0-94.0); Mean Platelet Volume 9.1 fL (7.4-10.4); Nucleated Red Blood Cells % 0 % (-); Platelet Count 509 10^3/uL (130-400); Red Cell Dist. Width 12.9 % (11.5-14.5); White Blood Cell Count 8.8 10^3/uL (4.8-10.8)
[2024-05-26 15:01] LABS: Carbon Dioxide 29 mmol/L (22-30); Chloride 101 mmol/L (98-107); Potassium 4.2 mmol/L (3.5-5.1); Sodium 136 mmol/L (135-145)
== END ==
LOC: REG 12:55
PROVIDERS: ATTENDING PHYSICIAN Internal Medicine
DX: E87.1 Hypo-osmolality and hyponatremia (principal); Z87.19 Personal history of other diseases of the digestive system
CPT/HCPCS: 36415; 80051; 85025

== ENCOUNTER → 2024-09-14 08:27 | Outpatient (REF) | payer MEDICARE, OTHER, SELFPAY ==
[2024-09-14 11:48] LABS: PSA, Total - Diagnostic < 0.06 ng/ml (0.0-4.0)
[2024-09-16 11:35] LABS: % Free Testosterone 1.1 % (1.6-2.9); Free Testosterone 1 pg/mL (47-244); Sex Hormone Binding Globulin 62 nmol/L (19-76); Testosterone, Bioavailable 3 ng/dL (131-682); Total Testosterone 10 ng/dL (300-720)
== END ==
LOC: REG 08:27
PROVIDERS: ATTENDING PHYSICIAN Radiology Radiation Oncology
DX: C79.51 Secondary malignant neoplasm of bone (principal); C61 Malignant neoplasm of prostate
CPT/HCPCS: 36415; 84153; 84270; 84402; 84403

== ENCOUNTER 2024-11-16 11:31 | Outpatient (RCR) | payer MEDICARE, OTHER, SELFPAY | END 2024-11-16 23:59 | disposition home or self-care (01) | LOC: RPT 11:31 | PROVIDERS: ATTENDING PHYSICIAN Radiology Radiation Oncology | DX: C61 Malignant neoplasm of prostate (principal); N39.498 Other specified urinary incontinence; Z73.6 Limitation of activities due to disability; K42.9 Umbilical hernia without obstruction or gangrene; Z90.79 Acquired absence of other genital organ(s); Z92.3 Personal history of irradiation | CPT/HCPCS: 97110; 97140; 97162; 97530 ==

== ENCOUNTER 2024-12-14 12:42 | Outpatient (RCR) | payer MEDICARE, OTHER, SELFPAY | END 2024-12-14 23:59 | disposition home or self-care (01) | LOC: RPT 12:42 | PROVIDERS: ATTENDING PHYSICIAN Radiology Radiation Oncology | DX: C61 Malignant neoplasm of prostate (principal); N39.498 Other specified urinary incontinence; Z73.6 Limitation of activities due to disability; K42.9 Umbilical hernia without obstruction or gangrene; Z90.79 Acquired absence of other genital organ(s); Z92.3 Personal history of irradiation | CPT/HCPCS: 97110; 97112; 97530 ==

== ENCOUNTER 2024-12-28 11:43 | Outpatient (RCR) | payer MEDICARE, OTHER, SELFPAY | END 2024-12-29 07:21 | disposition home or self-care (01) | LOC: RPT 11:43 | PROVIDERS: ATTENDING PHYSICIAN Radiology Radiation Oncology | DX: C61 Malignant neoplasm of prostate (principal); N39.498 Other specified urinary incontinence; Z73.6 Limitation of activities due to disability; Z90.79 Acquired absence of other genital organ(s); K42.9 Umbilical hernia without obstruction or gangrene; Z92.3 Personal history of irradiation | CPT/HCPCS: 97110; 97530 ==

== ENCOUNTER → 2025-04-07 11:26 | Outpatient (REF) | payer MEDICARE, OTHER, SELFPAY ==
[2025-04-07 13:00] LABS: PSA, Total - Diagnostic < 0.06 ng/ml (0.0-4.0)
== END ==
LOC: REG 11:26
PROVIDERS: ATTENDING PHYSICIAN Radiology Radiation Oncology; FAMILY PHYSICIAN Internal Medicine
DX: C61 Malignant neoplasm of prostate (principal)
CPT/HCPCS: 36415; 84153; 84403

== ENCOUNTER → 2025-08-26 09:28 | Outpatient (REF) | payer MEDICARE, OTHER, SELFPAY ==
[2025-08-26 11:03] LABS: PSA, Total - Diagnostic < 0.06 ng/ml (0.0-4.0)
== END ==
LOC: REG 09:28
PROVIDERS: ATTENDING PHYSICIAN Radiology Radiation Oncology; FAMILY PHYSICIAN Family Medicine
DX: C61 Malignant neoplasm of prostate (principal)
CPT/HCPCS: 36415; 84153; 84403